=== PATIENT | female | born 1950 | race Caucasian/White ===

== ENCOUNTER 2017-09-05 16:05 | Emergency (ER) | payer MEDICARE, SELFPAY ==
[2017-09-05 16:06] VITALS: BP 150/90; PULSE 109; RESP 18; TEMP 36.4; O2SAT 98; BMI 25.9
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
[2017-09-05 18:33] VITALS: BP 161/89
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
[2017-09-05 20:48] VITALS: BP 156/89
== END 2017-09-05 20:49 | disposition home or self-care (01) ==
PROVIDERS: Emergency Provider Emergency Medicine
DX: S42.251A Displaced fracture of greater tuberosity of right humerus, initial encounter for closed fracture (principal); S09.90XA Unspecified injury of head, initial encounter; V03.90XA Pedestrian on foot injured in collision with car, pick-up truck or van, unspecified whether traffic or nontraffic accident, initial encounter; Y93.9 Activity, unspecified; Y92.9 Unspecified place or not applicable
CPT/HCPCS: 70450; 73060; 73200; 99282

== ENCOUNTER → 2017-09-28 08:56 | Outpatient (CLI) | payer MEDICARE, SELFPAY ==
--- NOTE | 2017-09-28 08:57 | RAD_ITS ---
STUDY: X-RAY - RIGHT HUMERUS REASON FOR EXAM: Fracture follow-up. TECHNIQUE: 2 view(s) of the humerus. COMPARISON: Radiographs 09/05/2017. FINDINGS: There is a nondisplaced fracture of the greater tuberosity with mild resorption at the fracture site. There is no demonstrated soft tissue abnormality. RAD/Humerus min 2 Views IMPRESSION: Nondisplaced fracture of the greater tuberosity. Electronically Signed: Luis Miguel Jacinto MD at 10:34 EDT Tel , Service support ,
== END ==
PROVIDERS: Visit Provider Orthopaedic Surgery
DX: S42.309A Unspecified fracture of shaft of humerus, unspecified arm, initial encounter for closed fracture (principal); S42.253A Displaced fracture of greater tuberosity of unspecified humerus, initial encounter for closed fracture
CPT/HCPCS: 73060

== ENCOUNTER → 2017-10-19 09:47 | Outpatient (CLI) | payer MEDICARE, SELFPAY ==
--- NOTE | 2017-10-19 09:49 | RAD_ITS ---
STUDY: X-RAY - RIGHT SHOULDER REASON FOR EXAM: Female, 67 years old. Follow-up of fracture. TECHNIQUE: to September 28, 2017 view(s) of the shoulder. COMPARISON: None. FINDINGS: There is stable generalized osteopenia. There is a stable arthrosis of the glenohumeral joint. There is arthrosis of the acromioclavicular joint unchanged. Normal acromion. The greater tuberosity avulsion fracture of the right proximal humerus is stable with no complications. The soft tissue structures are unremarkable. Normal visualized pulmonary apex. RAD/Shoulder min 2 Views IMPRESSION: Stable osteopenia and osteoarthritic changes. Stable greater tuberosity avulsion fracture of the right proximal humerus with no complications. Electronically Signed: Paulino Smith MD at 17:16 EDT , Service support ,
== END ==
PROVIDERS: Visit Provider Orthopaedic Surgery
DX: S42.291A Other displaced fracture of upper end of right humerus, initial encounter for closed fracture (principal)
CPT/HCPCS: 73030

== ENCOUNTER → 2017-12-25 10:15 | Outpatient (CLI) | payer MEDICARE, SELFPAY ==
--- NOTE | 2017-12-25 10:27 | RAD_ITS ---
STUDY: X-RAY - RIGHT SHOULDER REASON FOR EXAM: Fracture follow-up. TECHNIQUE: 3 view(s) of the shoulder. COMPARISON: Radiographs 10/19/2017. FINDINGS: There is osteopenia. Normal glenohumeral articulation. Normal acromioclavicular joint. Normal acromion. There is a healing nondisplaced fracture of the greater tuberosity. The soft tissue structures are unremarkable. Normal visualized pulmonary apex. RAD/Shoulder min 2 Views IMPRESSION: Healing nondisplaced fracture of the greater tuberosity. Osteopenia. Electronically Signed: Luis Miguel Jacinto MD at 10:32 EDT Tel , Service support ,
== END ==
PROVIDERS: Visit Provider Orthopaedic Surgery
DX: S42.201A Unspecified fracture of upper end of right humerus, initial encounter for closed fracture (principal)
CPT/HCPCS: 73030

== ENCOUNTER 2017-12-28 12:00 | Outpatient (RCR) | payer MEDICARE, SELFPAY ==
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
--- NOTE | 2017-11-14 13:09 | HP.PTREVAL_ITS ---
Chelsey Lim, DO, It has been my pleasure to treat ROYER RODRIGUEZ over the last 11 visits for R greater tub Fx. Please see the progress note below for an update on the physical therapy plan of care! Subjective: Her shoulder is achy today because of the weather. She is having trouble raising arm overhead... due to soreness. She is sleeping ont her R shoulder for awhile and she is sleeping ok. said she still cant drive. She sees Dr Styles in Dec 25.. She is pushing a rag up the wall at home, she uses the yardstick in supine at home. Objective/Function: R shld flex AROM is 105 degrees. R shld abd AROM is 100 degrees. R shld IR is to L5. R shld ER is 60 degrees. R shld MMT: Shld flex 3-/5, shld abd 3-/5, Er 3+/5 and IR 4/5 Plan Plan: 2X/ week for 3 additional weeks for R shoulder AROM, scapular and RC strengthening with HEP. Goals Goal 1:: I HEP Goal Time Frame: 4-6 Weeks Goal Progress: Goal Met Goal 2:: Increase R shoulder PROM to 160 degrees elevation and 45 degress ER PROM. Goal Time Frame: 4-6 Weeks Goal 3:: When able to start strengthening: Gain R shld strength to 4/5 all planes. Goal Time Frame: 4-6 Weeks Goal 4:: Re-gain full function of the R shoulder for all ADL's. Anticipated Interventions Patient/Client Instruction: Educate patient on: Condition, Plan of Care For the Purpose of:: To decrease pain, To increase ROM, To improve nutrient delivery to tissue, To improve muscle performance and motor function, To improve ability to perform ADL's, To increase tolerance to activity/condition/ position, To improve performance and independence with ADL's, To improve health of tissue, To decrease soft tissue restriction, To increase flexibility/ROM Therapeutic Exercise to Include: Strength training, Postural training, Flexibilty training, Passive ROM, Active ROM, Scapular Strength/Stabilization For the Purpose of:: To decrease pain, To increase ROM, To improve nutrient delivery to tissue, To improve muscle performance and motor function, To improve ability to perform ADL's, To increase tolerance to activity/condition/ position, To improve performance and independence with ADL's, To improve health of tissue, To decrease soft tissue restriction, To increase flexibility/ROM Manual Therapy Techniques to Include: Passive ROM For the Purpose of:: To improve nutrient delivery to tissue, To increase flexibility/ROM IF ES: Yes Cryotherapy (ice pack, ice massage): Yes Thermo therapy (hot pack): Yes Ultrasound (thermal/non thermal): Yes For the Purpose of:: To decrease pain, To decrease swelling/inflammation, To increase ROM, To improve nutrient delivery to tissue Please do not hesitate to contact me at [phone] by phone or Fax: if you have questions or concerns regarding this new plan of care! Sincerely, Cynthia Kim
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
== END 2017-12-28 14:28 | disposition home or self-care (01) ==
LOC: PT 12:00
PROVIDERS: Visit Provider Orthopaedic Surgery
DX: Z98.890 Other specified postprocedural states (principal)
CPT/HCPCS: 97110; 97140; 97161; 97530

== ENCOUNTER 2021-09-13 17:45 | Emergency (ER) | payer MEDICARE, SELFPAY ==
[2021-09-13 17:46] VITALS: BP 189/78; PULSE 142; RESP 18; TEMP 36.2; O2SAT 93; BMI 24.9
[2021-09-13 17:59] VITALS: BP 189/78; PULSE 142; RESP 18; TEMP 36.2; O2SAT 93
--- NOTE | 2021-09-13 18:19 | CM.ED ---
JASS Note: JASS Note Referral Source: Case Find Referral Reason: No PCP SW noted patient had no PCP. SW provided patient with [facility] Directory and encouraged them to follow up for a PCP. No other issues or questions voiced. SW remains available if needs arise. Plan: Resources provided Arianne CM
--- NOTE | 2021-09-13 18:20 | EDS_ITS ---
HPI History of Present Illness Chief Complaint: Bite Detail of Chief Complaint: Right hand cat bite 2 days ago. Informant: patient Occured/Mechanism Comment: Cat bite Onset/Context/Timing Onset: Days Context: Gradual Onset Timing: Continuous Quality of Pain: Dull and Aching Current Severity: Mild Maximum Severity: Mild Associated Symptoms Associated Symptoms: Negative for Parasthesia, Weakness and Loss of Funtion Narrative Narrative: 31-year-old female [id number] no seen past medical history but admittedly does not see a physician. States that she was feeding a stray cat yesterday another cat came up and got in a fight and the cats were fighting one of them bit the back of her right hand. This occurred on Sunday. She has now developed redness and swelling to the back of her hand. Denies any fever or chills. I believe was seen in urgent care and referred to the emergency department. She denies any other complaints. Prior similar symptoms: No Recent Illness/Hospitalization: No ROS ROS ED ROS Narrative Denies recent illness. Review of Systems ROS Unobtainable: Denies due to encephalopathy Constitutional Constitutional ED: Denies fever(s) Eyes Eyes: Denies change in vision ENT ENT ED: Denies ear pain Cardiovascular Cardiovascular: Denies chest pain Respiratory/Chest Respiratory/Chest: Denies dyspnea Gastrointestinal Gastrointestinal: Denies abdominal pain, diarrhea, nausea or vomiting Genitourinary Genitourinary ED: Denies dysuria Musculoskeletal Musculoskeletal: Denies myalgias Integumentary Reports rash Neurologic Neurologic: Denies headache(s) Psychiatric Psychiatric: Denies depression Endocrine Endocrinology: Denies polyuria Hematologic/Lymphatic Hematologic/Lymphatic: Denies easy bruising Allergic/Immunologic Allergic/Immunologic ED: Denies urticaria PFSH PFSH Medical History no medical history no medical history Home Medications aspirin 325 mg PO Q4H PRN PRN 10/13/15 [History Last Taken Unknown] multivitamin 1 ea PO DAILY 10/13/15 [History Last Taken Unknown] amoxicillin-pot clavulanate 1 tab PO BID 10 Days #20 tab 09/13/21 [Rx Last Taken Unknown] Allergy/AdvReac Type Severity Reaction Status Date / Time egg Allergy Swelling Verified 09/13/21 17:46 Penicillins Allergy Unknown Verified 09/13/21 17:46 Social History Smoking Status: Never smoker EXAM Physical Exam Narrative Exam Narrative: Sore throat female no acute distress vital signs stable afebrile. Dorsum of right hand is mildly red mildly swollen. She has normal flexion-extension of all digits. No Knievel sign. No signs of flexor tenosynovitis. There is no streaks in her forearm and no axillary lymp hadenopathy. This appears to be early cellulitis from a cat bite. Const Vital Signs: 09/13/21 17:46 09/13/21 17:59 Temperature 97.2 F L 97.2 F L Temperature Source Temporal Temporal Pulse Rate 142 H 142 H Respiratory Rate 18 18 Blood Pressure 189/78 H 189/78 H Blood Pressure Mean 115 115 Pulse Ox 93 93 Oxygen Delivery Method Room Air Room Air Positive well nourished and well developed; Negative for obese, cachectic, contractures or unkempt General Appearance ED: well developed and NAD; Negative for unkempt, cachectic or contractures Nutritional Appearance: Negative for cachectic or obese HEENT Reports moist mucous membranes normocephalic and atraumatic; Negative for trauma or tenderness Eyes PERRL and EOMs intact bilaterally Neck full ROM and no lymphadenopathy General: Negative for tenderness Resp normal respiratory effort and clear to auscultation bilaterally Auscultation: Negative for rales, rhonchi or wheezes Cardio regular rate, regular rhythm, S1 normal heart sound, S2 normal heart sound and no murmurs GI non-tender, non-distended and no masses Inspection: Negative for abdominal distention Auscultation: normoactive bowel sounds Palpation: soft; Negative for tender, guarding or rebound tenderness present Bladder / Kidney Exam: No CVA tenderness Back/Spine no CVA tenderness General Back: Negative for CVA tenderness Cervical Spine: Negative for cervical spine tenderness Thoracic Spine / Upper Back: Negative for thoracic spinal tenderness Lumbar Spine / Lower Back: Negative for lumbar spinal tenderness Extremity normal to inspection and full ROM Extremity Narrative: Except dorsum right hand cellulitis mild soft tissue swelling. Mild tenderness. Normal flexion-extension. No lymphangitic streaks. No axillary lymphadenopathy. No signs of flexor tenosynovitis. Nor any signs of extensor tenosynovitis. General Extremety ED: Negative for deformity, edema or tenderness General Extremity: Negative for deformity or edema Neuro oriented x3 Sensorium / Orientation: alert, oriented to person, oriented to place and oriented to time Motor Exam: strength 5/5 throughout Psych mental status grossly normal Appearance: Negative for unkempt Skin Lesions: no lesions Rashes: No no rashes Trauma: Negative for abrasion or laceration MDM MDM MDM Narrative Medical decision making narrative: 71-year-old female with a cat bite infection dorsum of her right hand. There is no signs of infection of either the flexor or extensor tendons. She has normal range of motion of her hand. There is no lymphangitic streaking or axillary lymphadenopathy. She will be given a dose of IV Unasyn. Placed on Augmentin 875 twice daily and follow-up for repeat evaluation. She was given strict instructions to return if fever, feeling worse, increasing redness and swelling, increasing pain or lymphangitic streaks. Discharge Plan Triage Chief Complaint: Bite ED Provider: Roger Del Cid Dx/Rx/DC Orders Clinical Impression: Cat bite of right hand with infection, Cellulitis Instructions: ED Cat Bite Prescriptions: New amoxicillin-pot clavulanate 875-125 mg tablet 1 tab PO BID 10 Days Qty: 20 RF: 0 No Action multivitamin 1 EACH tablet 1 ea PO DAILY RF: 0 aspirin 325 MG tablet 325 mg PO Q4H PRN PRN (Reason: Headache) RF: 0 Primary Care Provider: Care Physician,No Primary Referrals: Arsalan Watt MD [STAFF PHYSICIAN] - 2 Days Care Physician,No Primary [Primary Care Provider] - Activity Restrictions/Additional Instructions: You have a cat bite infection of your right hand. Ice and elevate to decrease pain and swelling. This needs to be rechecked in 2 days to ensure its improving. Return to the emergency department if increasing pain, increasing swelling, increasing redness up in your forearm. You are feeling worse. If you get se mikey pain and have trouble flexing extending your hand it needs to be reevaluated. You need to be very careful with cat bites they can get infected and get bad quickly. You were given a dose of IV Unasyn. Be placed on the antibiotic Augmentin that you will start taking twice a day and take 1 tonight before bedtime. Then take it in the morning with breakfast in the evening with dinner for the next 10 days. Disposition Disposition: Home, Self Care
== END 2021-09-13 19:20 | disposition home or self-care (01) ==
PROVIDERS: Emergency Provider Emergency Medicine; Visit Provider Emergency Medicine
DX: S60.571A Other superficial bite of hand of right hand, initial encounter (principal); L03.113 Cellulitis of right upper limb; W55.01XA Bitten by cat, initial encounter; Y93.89 Activity, other specified; Y99.8 Other external cause status
CPT/HCPCS: 96365; 99282; J7050; A4216; J0295

== ENCOUNTER 2024-01-12 15:48 | Emergency (ER) | payer MEDICARE, SELFPAY ==
[2024-01-12 15:49] VITALS: BP 154/94; PULSE 146; RESP 18; TEMP 36.5; O2SAT 94; BMI 25.7
--- NOTE | 2024-01-12 16:10 | EKG12_ITS ---
Test Reason : TACHYCARDIC Blood Pressure : / mmHG Vent. Rate : 133 BPM Atrial Rate : 133 BPM P-R Int : 132 ms QRS Dur : 080 ms QT Int : 296 ms P-R-T Axes : 063 -55 056 degrees QTc Int : 440 ms Sinus tachycardia Left anterior fascicular block Cannot rule out Inferior infarct (masked by fascicular block?) , age undetermined Abnormal ECG Confirmed by MONALISA VIZCAINO MD ([id number]), international editorial producer ISRA LEWIS ([id number]) on 01/15/2024 10:24:34 AM Referred By: Confirmed By:MONALISA VIZCAINO MD
--- NOTE | 2024-01-12 16:25 | EDS_ITS ---
HPI History of Present Illness Chief Complaint: Weakness Detail of Chief Complaint: Patient felt weak in her knees as if she was going to fall Informant: patient and family Limited: other (Patient is a poor informant) Onset/Context/Timing Onset: Today Context: Sudden Onset Timing: Intermittent Quality: [place] near syncope Location: Residence Current Severity: Gone Maximum Severity: Moderate Worsened by: Patient was standing Relieved by: Sitting down Associated Symptoms Associated Symptoms: None Narrative Narrative: Patient is a 73-year-old woman. She has not seen a physician in decades. She was unaware that her heart rate was 146. She denies fever, chills night sweats. She denies headache, visual, ocular auditory symptoms. She does have rhinorrhea which she attributes to allergies. She denies color drainage. She denies sore throat. She does have a slight cough, which is chronic. The cough is nonproductive. She denies chest discomfort i.e. tightness heaviness pressure pleuritic etc. She denies shortness of breath at rest. She has had increased shortness of breath per family over the past couple of days. She denies leg pain, swelling discoloration. There is no history of PE or DVT. She has no risk factors that she is aware of. She denies abdominal pain, black stool maroon stool. She denies nausea or vomiting. She denies flank or back pain. Denies dysuria, frequency, urgency or hematuria. She denies paresthesia, anesthesia motors. Denies trouble with balance or coordination. Prior similar symptoms: No Recent Illness/Hospitalization: No PFSH PFSH Medical History no medical history no medical history Home Medications ?Medication ?Instructions ?Recorded ?Last Taken ?Type aspirin 325 mg tablet 325 mg PO Q4H PRN PRN Headache 10/13/15 Unknown History multivitamin 1 ea PO DAILY 10/13/15 Unknown History amoxicillin 875 mg-potassium 1 tab PO BID 10 days #20 tabs 09/13/21 Unknown Rx clavulanate 125 mg tablet levothyroxine 75 mcg tablet 75 mcg PO DAILY #30 tabs 01/12/24 Unknown Rx metoprolol succinate 25 mg 25 mg PO DAILY #30 tabs 01/12/24 Unknown Rx tablet,extended release 24 hr Allergy/AdvReac Type Severity Reaction Status Date / Time egg Allergy Swelling Verified 01/12/24 15:49 Penicillins Allergy Unknown Verified 01/12/24 15:49 Surgical History no surgical history no surgical history Social History (Updated 01/12/24 @ 16:[address] Kevin Darnell MD) household members: family Smoking Status: Never smoker alcohol intake: never substance use type: does not use ROS ROS ED Constitutional Constitutional ED: Denies chills, fever(s), subjective or sweats Eyes Eyes: Denies blurry vision, change in vision or diplopia ENT ENT ED: Reports rhinorrhea; Denies ear pain or sore throat Cardiovascular Cardiovascular: Denies chest pain, orthopnea, palpitations, paroxysmal nocturnal dyspnea or racing heartbeat Respiratory/Chest Respiratory/Chest: Reports dyspnea on exertion; Denies cough, dyspnea, orthopnea, paroxysmal nocturnal dyspnea or sputum Gastrointestinal Gastrointestinal: Denies abdominal pain, constipation, diarrhea, melena, nausea or vomiting Genitourinary Genitourinary ED: Denies dysuria, hematuria or urinary frequency Musculoskeletal Musculoskeletal: Denies arthralgias, back pain or myalgias Integumentary Denies rash Neurologic Neurologic: Reports weakness; Denies headache(s) or paresthesias Endocrine Endocrinology: Reports heat intolerance; Denies cold intolerance Hematologic/Lymphatic Hematologic/Lymphatic: Reports systems reviewed and no addt'l complaints, except as documented Allergic/Immunologic Allergic/Immunologic ED: Denies mouth swelling or tongue swelling EXAM Physical Exam Const Vital Signs: 01/12/24 15:49 01/12/24 16:29 01/12/24 17:40 Temperature 97.7 F L Temperature Source Oral Pulse Rate 146 H 118 H Respiratory Rate 18 16 Respiratory Effort Normal Respiratory Pattern Normal Blood Pressure 154/94 H 132/78 H Blood Pressure Mean 114 96 Pulse Ox 94 97 Oxygen Delivery Method Room Air Room Air 01/12/24 18:57 Temperature Temperature Source Pulse Rate 117 H Respiratory Rate 15 Respiratory Effort Respiratory Pattern Blood Pressure 146/94 H Blood Pressure Mean 111 Pulse Ox 94 Oxygen Delivery Method Room Air Positive well nourished and well developed Constitutional Narrative: Patient's blood pressure is elevated heart rate is markedly elevated. General Appearance ED: well developed, NAD and pallor HEENT Reports moist mucous membranes HEENT Narrative: Poor dentition. Posterior pharynx is normal. Ears normal. Nares patent. There is no tenderness over the frontal ethmoid or maxillary sinuses. Eyes PERRL and EOMs intact bilaterally General Eye ED: Negative for pale conjunctiva or scleral icterus Neck no lymphadenopathy, supple and no JVD Neck Narrative: Trachea is midline. There is no stridor. There is no dysphonia. Resp normal respiratory effort and clear to auscultation bilaterally Cardio regular rhythm, S1 normal heart sound, S2 normal heart sound and no murmurs Rate: tachycardic GI normal to inspection, nondistended, normoactive bowel sounds, non-tender, non- distended and no masses; Negative for hepatosplenomegaly GI Narrative: There is no pulsatile mass or abdominal bruit. Back/Spine no CVA tenderness Extremity Extremity Narrative: There is no asymmetry, discoloration, leg vein distention, palpable cords tenderness on the distribution deep venous system. General Extremety ED: Yes edema General Extremity: edema Neuro oriented x3, CN's II-XII intact bilaterally and no sensory deficits noted Sensorium / Orientation: alert Motor Exam: strength 5/5 throughout Psych mental status grossly normal Skin no rashes or lesions noted, no wounds and No skin turgor normal General Skin Exam: pallor; Negative for elasticity normal or jaundice MDM MDM MDM Narrative Medical decision making narrative: With a rate of 146 need entertain possibility of atrial fibrillation/flutter. Also sinus tachycardia. Since she reports heat intolerance question of mild weight loss will obtain TSH to rule out thyroid disease. CBC to rule out anemia since she appears pale. BMP to assess renal function since she has not seen a doctor in decades. She was placed on the monitor. Monitor reveals a narrow complex tachycardia appears to be sinus. Rate is 136. Lab Data Attestation: I reviewed the patient's lab results. Lab results narrative: White count is elevated. MCV and MCH are elevated as well. This may be due to pernicious anemia or folate deficiency since patient denies alcohol use. D- dimer is elevated even if corrected for age. BUN and creatinine are elevated 21 and 1.38. Estimated GFR is 40. There is no old labs for comparison. Total bilirubin is elevated with a normal AST and ALT. Alkaline phosphatase is slightly elevated. TSH is elevated at 10.4. This was obtained to rule out hyperthyroidism not hypothyroidism since she is tachycardic for uncertain reason. Labs: Laboratory Results - last 24 hr 01/12/24 15:55 WBC 14.0 H RBC 3.66 L Hgb 13.7 Hct 40.0 MCV 109.3 H MCH 37.4 H MCHC 34.3 RDW Std Deviation 49.4 H RDW Coeff of Jessica 12.3 Plt Count 289 MPV 9.8 Immature Gran % (Auto) 0.700 Neut % (Auto) 84.0 H Lymph % (Auto) 7.7 L [place] % (Auto) 6.9 Eos % (Auto) 0.1 Baso % (Auto) 0.6 Absolute Neuts (auto) 11.8 H Absolute Lymphs (auto) 1.08 Nucleated RBC % 0 D-Dimer Quant (PE/DVT) 5.26 H* Sodium 138 Potassium 3.8 Chloride 103 Carbon Dioxide 26.0 Anion Gap 9 BUN 21 H Creatinine 1.38 H Estim Creat Clear Calc 36.81 Est GFR (MDRD) Af Amer 48 L Est GFR (MDRD) Non-Af 40 L BUN/Creatinine Ratio 15.2 Glucose 152 H Calcium 9.5 Total Bilirubin 2.30 H AST 20 ALT 17 Alkaline Phosphatase 131 H Troponin I High Sens 9 Total Protein 7.8 Albumin 3.6 Globulin 4.2 Albumin/Globulin Ratio 0.9 TSH 10.400 H Radiography Diagnostic Testing: Clinical Impression(s) from Imaging Studies Chest CTA 01/12/24 17:30 IMPRESSION: 1. No demonstrated pulmonary embolism or arterial dissection. 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 3. No visualized consolidation Electronically Signed: Price Bassett MD at 19:27 EDT Reading Location ID and State: [address] [place] [address] , Service support , CT of the chest reveals no obvious pulmonary embolus per my review. Furthermore there is no evidence of pneumothorax or infiltrate. CT report was read. Since patient has not been a physician she was referred to Dr. English and Dr. Costa for endocrinology/hypothyroidism Rhythm Strip Rhythm Strip: Sinus Tach Rate: 136 EKG Initial EKG: Attestation: I personally reviewed and interpreted this EKG as follows: Interpretation: Sinus Tachycardia (Rate is 133. There is evidence of a left anterior fascicular block. [place] to the left. Parables 132 ms. Cures duration 80 ms. QT duration 296 ms. In my opinion this is not read as represent atrial flutter.) Treatment and Re-Evaluation :: Patient was informed because of her tachycardia near syncope elevated D-dimer a CAT scan of the chest with contrast was ordered to assess for blood clot. Discharge Plan Triage Chief Complaint: Weakness ED Provider: Kevin Darnell Dx/Rx/DC Orders Clinical Impression: Sinus tachycardia seen on phone representative, Hypothyroidism, Elevated blood- pressure reading without diagnosis of hypertension, Near syncope Instructions: ED About Arrhythmias, ED Hypertension, To Be Confirmed, ED Hypothyroidism, ED Near-Fainting, Uncertain Cause Prescriptions: New levothyroxine 75 mcg tablet 75 mcg PO DAILY Qty: 30 0RF metoprolol succinate 25 mg tablet extended release 24 hr 25 mg PO DAILY Qty: 30 0RF No Action multivitamin 1 EACH tablet 1 ea PO DAILY aspirin 325 MG tablet 325 mg PO Q4H PRN PRN (Reason: Headache) amoxicillin-pot clavulanate 875-125 mg tablet 1 tab PO BID 10 Days Qty: 20 0RF Primary Care Provider: Care Physician,No Primary Referrals: Jf Nam MD [Med Staff - Active Staff] - 1-2 Weeks Rashad Costa MD [Med Staff - Courtesy Staff] - 1-2 Weeks Dago English MD [Med Staff - Welding Rod Coater] - 1-2 Weeks Care Physician,No Primary [Primary Care Provider] - Activity Restrictions/Additional Instructions: Since you do not have a general doctor you were referred to Dr. Dago English. Call for appointment to be seen in next 1 to 2 weeks. Since you do not have an bricklayer helper who referred to Dr. Rashad Costa. Call for appointment to be seen in the next week or 2. Since you have persistent tachycardia you were referred to Dr. Nam. Call office for appointment to be seen within the next week or 2 You were started on medicine to slow your heart rate down and medicine for your low thyroid function. Print Language: Malay Disposition Disposition: Home, Self Care
[2024-01-12 16:36] LABS: Absolute Lymphocyte Count 1.08 X10^3/uL (0.83-4.51); Absolute Neutrophil Count 11.8 X10^3/uL (2.0-7.7); Basophil# 0.08 X10^3/uL; Basophil% 0.6 % (0-1); Eosinophil# 0.02 X10^3/uL; Eosinophils% 0.1 % (0-5); Hemoglobin 13.7 g/dL (12.0-15.0); Lymphocyte # 1.08 X10^3/ul (0.83-4.51); Lymphocyte % 7.7 % (19-41); Mean Corp Hgb Conc 34.3 g/dL (32-36); Mean Corpuscular Hgb 37.4 pg (27.0-32.0); Mean Corpuscular Volume 109.3 fL (81-99); Mean Platelet Vol. 9.8 fl (6.2-12.0); Monocyte# 0.96 X10^3/uL; Monocyte% 6.9 % (0-10); NRBC Flagged by Analyzer 0 % (0-5); Neutrophil # 11.77 X10^3/uL (2.7-7.7); Platelet Count 289 K/mm3 (150-450); RBC Distribution Width CV 12.3 % (11.6-14.6); RBC Distribution Width SD 49.4 fl (35.1-43.9); Red Blood Count 3.66 M/mm3 (4.2-5.4)
[2024-01-12 16:43] LABS: ALB/GLOB Ratio 0.9 RATIO (0.9-2.4); AST(SGOT) 20 U/L (15-37); Alanine Aminotransfer ALT/SGPT 17 U/L (13-56); Albumin, Serum 3.6 g/dL (3.2-5.0); Alkaline Phosphatase 131 U/L (45-117); Anion Gap 9 (5-15); BUN 21 mg/dL (7-18); BUN/Creat Ratio 15.2 RATIO (10-20); Calcium,Total 9.5 mg/dL (8.5-10.1); Chloride 103 mmol/L (98-107); Creatinine, Serum 1.38 mg/dL (0.55-1.02); EST Glomerular Filtration Rate 40 mL/min (>60); Est Glom Filt Rate - Afr Amer 48 mL/min (>60); Estimated Creatinine Clearance 36.81 ml/min; Globulin 4.2 g/dL (2.2-4.2); Glucose 152 mg/dL (74-106); Potassium 3.8 mmol/L (3.5-5.1); Protein, Total 7.8 g/dL (6.4-8.2); Sodium Level 138 mmol/L (136-145); Troponin-I HS 9 pg/mL (3.0-54.0)
--- NOTE | 2024-01-12 17:15 | CM.ED ---
Social Work: Date of referral: 01/12/24 Reason for referral: Weakness and not established with a PCP. Referred by: Social Work Identification Patient provided consent to social work visit. In the room with patient were patient's cousins Gladys and Latrice. Patient currently resides with Gladys and Gladys's daughter Kandy. Patient not able to provide a solid reason as to why she's not established with a PCP. Scientist/Engineer asked patient's cousins if either would be able to assist patient with getting established with a PCP and both stated they would be able to assist. Gladys admittted she doesn't have a PCP wither and she and patient have been doing good and didn't think a PCP was needed. transportation worker provided preventative education and also provided education how to search for providers which patient's cousins reported they knew and understood. Latrice is established with a PCP and reported she is also able to help. Patient reported this is the first time she's been so weak that she hasn't been able to walk. Patient still drives. Patient does have a walker at home to ambulate with if/when needed. Patient appeared to be unkept, poor hygiene, disheveled and presented with poor oral hygiene/numerous missing teeth and at least one tooth that appeared to be decayed and broken off. It is likely that patient will be in need of follow up appointments following the ED visit on this date. Due to patient not having been to the doctor in years, as well as overall presentation, director of social work will request that aids social worker make a referral to [facility]PS to ensure patient is not self-neglecting and has the supports in place that will ensure patient's current and future medical needs are being met. Fern Watkins, NEAR EASTERN ARCHAEOLOGY LECTURER, FINANCIAL AGENT
[2024-01-12 17:30] LABS: D-Dimer Quantitative (DVT/PE) 5.26 FEU/ug/m (0.27-0.49)
--- NOTE | 2024-01-12 17:30 | CT_ITS ---
STUDY: CTA CHEST REASON FOR EXAM: Female, 73 years old. Dyspnea, tachycardia, elevated D-dimer RADIATION DOSAGE (If Supplied By Facility): CTDIvol = ( 12.9 ) mGy, DLP = ( 361.18 ) mGycm TECHNIQUE: The examination was performed with the intravenous administration of IV 100mL Isovue-370. Post-processing of the angiographic images was performed, with multiplanar reformation and 3D reconstruction. Individualized dose optimization techniques were used for this CT. Mild motion artifact is present. COMPARISON: None. FINDINGS: Normal enhancement of the main pulmonary artery and right and left pulmonary arteries. Normal enhancement of the bilateral peripheral pulmonary arteries. There is no demonstrated pulmonary embolism. There is atherosclerotic calcification of the aortic arch with tortuosity. There is no demonstrated aortic dissection. Normal heart and pericardium. There are calcifications of the coronary arteries. Normal mediastinum. Normal hilar regions. Normal visualized trachea and bronchi. The lungs are hyper expanded, with flattening of the hemidiaphragms. There are mildly increased diffuse interstitial parenchymal markings. No visualized pneumonic consolidation or active pulmonary edema. Mild cystic emphysematous changes are present. No pleural effusion is seen. No visualized masses. Normal pleura. Normal chest wall structures. There are degenerative changes of thoracic spine. Small to moderate-sized hiatal hernia noted. The remaining visualized upper abdominal structures are unremarkable. CT/CTA Chest W/WO Contrast IMPRESSION: 1. No demonstrated pulmonary embolism or arterial dissection. 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 3. No visualized consolidation Electronically Signed: Price Bassett MD at 19:27 EDT Reading Location ID and State: [facility] / [place] , Service support ,
[2024-01-12 17:40] VITALS: BP 132/78; PULSE 118; RESP 16; O2SAT 97
[2024-01-12 18:57] VITALS: BP 146/94; PULSE 117; RESP 15; O2SAT 94
[2024-01-12 19:30] VITALS: BP 146/72; BP 148/72; BP 153/72; PULSE 112; PULSE 115; PULSE 120
[2024-01-12 19:46] VITALS: BP 148/80; PULSE 20; RESP 116; TEMP 36.7; O2SAT 97
[2024-01-12] MEDS: Levothyroxine 75 MCG Tablet PO (19:57)
[2024-01-12] MEDS: Metoprolol(XL)Succ 25 MG Tablet PO (19:57)
--- NOTE | 2024-01-14 10:48 | CASEMGMT ---
Addendum entered by Michelle Bob 01/15/24 14:58: TC to the pt at this time (attempt #3) to provide follow-up assistance. No answer at this time. TC to the pt Gladys Zuñiga. No answer at this time. Addendum entered by Michelle Bob 01/14/24 14:20: Attempt #2 to contact the pt at this time. No answer. Unable to leave voice message. Original Note: TC to pt at this time for follow up. No answer at this time. Unable to leave VM d/t voice mailbox not being set up.
--- NOTE | 2024-01-17 09:35 | CASEMGMT ---
Addendum entered and electronically signed by Kandy Ontiveros RN 01/17/24 12:15: Tawnya phoned this RN and states she is feeling better. States she has been taking her medication and is aware her cousin is helping to set up her follow-up appointments. Pt denies any concerns except did state that she is getting a stuffy nose. Pt commented you know fall is coming. 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 Her cousin Gladys has been living with her for approximately 3 years. Pt denies any concerns with being able to care for herself and states she can still do so independently. Encouraged pt to establish a PCP and to continue to visit a physician regularly to maintain her health. Pt expressed understanding but not necessarily an intent to do so. Pt denies needing any assistance at this time. Has the support of her cousin for follow-up appointments and medication management. No skilled needs identified currently. Lila Ontiveros RN [facility] Original Note: substance abuse services director Follow-up: Call received from pt's cousin Gladys Mckinley who states she noted the missed calls on her phone from the hospital and was attempting to return them. States she had someone stop by and knock on the door yesterday but she was unable to get to the door in time. Gladys wondered if we would have sent someone to check on Tawnya. Explained to Gladys that we had attempted to reach out to her and Tawnya in follow-up to the ED visit and that we had reached out to [facility] to have someone check on them and offer any assistance with Tawnya's care. Gladys states that Tawnya has been improving since returning home from the ED, is ambulating without difficulty and hopping in her car and driving away whenever desired. Gladys states pt is able to perform her ADLs including bathing but that Gladys has to encourage pt to do so as Tawnya does not have a strong desire to bath independently. Gladys states pt received her medications and has been taking them as prescribed. Gladys states she plans to make pt's appointments today as she has been working and not been able to call when the offices are open. She plans to attend the appointments with Tawnya although Tawnya is able to drive herself. Gladys states she works at [employer] with hours that change frequently. Per Gladys, Tawnya was never and did not have any children. There are many other cousins and family members but Gladys assists Tawnya regularly as able. Gladys denies any concerns at this time. States she will have Tawnya call me back later today. States Tawnya is currently sleeping as she often stays up late at night and sleeps until late morning/noon. This RN CM provided Gladys a direct call back number. Plan: Gladys supportive of pt and her care needs but as care needs escalate, this may be challenging with Gladys's work schedule. Lila Ontiveros RN [facility]
== END 2024-01-12 19:58 | disposition home or self-care (01) ==
PROVIDERS: Emergency Provider Emergency Medicine; Visit Provider Emergency Medicine
DX: R55 Syncope and collapse (principal); R53.1 Weakness; R00.0 Tachycardia, unspecified; E03.9 Hypothyroidism, unspecified; R03.0 Elevated blood-pressure reading, without diagnosis of hypertension; R06.09 Other forms of dyspnea; R05.3 Chronic cough
CPT/HCPCS: 71275; 80053; 84443; 84484; 85025; 85379; 93005; 99285; Q9967; A4216

== ENCOUNTER → 2024-02-14 | Outpatient (CLI) | payer MEDICARE, SELFPAY | END | disposition home or self-care (01) | LOC: CVS 12:55 | PROVIDERS: PCP Internal Medicine; Referring Provider Internal Medicine Cardiovascular Disease; Visit Provider Internal Medicine Cardiovascular Disease | DX: R06.09 Other forms of dyspnea (principal) | CPT/HCPCS: 93306 ==

== ENCOUNTER → 2024-02-20 | Outpatient (CLI) | payer MEDICARE, SELFPAY ==
[2024-02-20 15:36] LABS: Vitamin B12 175 pg/mL (211-911)
[2024-02-20 15:48] LABS: Cholesterol 195 mg/dL (200); High Density Lipoprotein 50 mg/dL; T4 Free Direct 1.63 ng/dL (0.76-1.46); Triglycerides 155 mg/dL; Very Low Density Lipoprotein 31 mg/dL (5-40)
[2024-02-20 15:52] LABS: Hemoglobin A1c 5.3 % (3.8-5.6)
[2024-02-20 16:01] LABS: Anion Gap 7 (5-15); BUN 20 mg/dL (7-18); BUN/Creat Ratio 22.3 RATIO (10-20); Calcium,Total 9.1 mg/dL (8.5-10.1); Chloride 103 mmol/L (98-107); EST Glomerular Filtration Rate 65 mL/min (>60); Est Glom Filt Rate - Afr Amer 79 mL/min (>60); Glucose 93 mg/dL (74-106); Potassium 4.3 mmol/L (3.5-5.1); Sodium Level 137 mmol/L (136-145)
== END | disposition home or self-care (01) ==
LOC: BIMLAB 11:55
PROVIDERS: PCP Internal Medicine; Referring Provider Internal Medicine Cardiovascular Disease; Visit Provider Internal Medicine Cardiovascular Disease
DX: R00.0 Tachycardia, unspecified (principal); R73.9 Hyperglycemia, unspecified; E03.9 Hypothyroidism, unspecified; D75.89 Other specified diseases of blood and blood-forming organs
CPT/HCPCS: 36415; 80048; 80061; 82607; 82746; 83036; 84439; 84443

== ENCOUNTER → 2024-05-20 | Outpatient (CLI) | payer MEDICARE, SELFPAY ==
[2024-05-20 15:27] LABS: Absolute Lymphocyte Count 2.56 X10^3/uL (0.83-4.51); Absolute Neutrophil Count 4.6 X10^3/uL (2.0-7.7); Basophil# 0.13 X10^3/uL; Basophil% 1.6 % (0-1); Eosinophil# 0.23 X10^3/uL; Eosinophils% 2.8 % (0-5); Hematocrit 47.8 % (37-47); Hemoglobin 15.3 g/dL (12.0-15.0); Lymphocyte # 2.56 X10^3/ul (0.83-4.51); Lymphocyte % 31.1 % (19-41); Mean Corpuscular Hgb 29.4 pg (27.0-32.0); Mean Corpuscular Volume 91.7 fL (81-99); Mean Platelet Vol. 10.9 fl (6.2-12.0); Monocyte% 8.5 % (0-10); NRBC Flagged by Analyzer 0 % (0-5); Neutrophil % 55.8 % (47-70); Platelet Count 333 K/mm3 (150-450); RBC Distribution Width SD 43.6 fl (35.1-43.9); Red Blood Count 5.21 M/mm3 (4.2-5.4); White Blood Count 8.2 K/mm3 (4.4-11.0)
[2024-05-20 16:18] LABS: Vitamin B12 254 pg/mL (211-911); Vitamin D,25 Hydroxy 15.2 ng/mL
[2024-05-20 16:19] LABS: ALB/GLOB Ratio 0.9 RATIO (0.9-2.4); AST(SGOT) 13 U/L (15-37); Alanine Aminotransfer ALT/SGPT 17 U/L (13-56); Albumin, Serum 3.6 g/dL (3.2-5.0); Alkaline Phosphatase 109 U/L (45-117); Anion Gap 6 (5-15); BUN 24 mg/dL (7-18); BUN/Creat Ratio 25.6 RATIO (10-20); Calcium,Total 9.5 mg/dL (8.5-10.1); Chloride 106 mmol/L (98-107); Creatinine, Serum 0.94 mg/dL (0.55-1.02); EST Glomerular Filtration Rate 62 mL/min (>60); Est Glom Filt Rate - Afr Amer 75 mL/min (>60); Globulin 4.1 g/dL (2.2-4.2); Glucose 87 mg/dL (74-106); Potassium 4.1 mmol/L (3.5-5.1); Protein, Total 7.7 g/dL (6.4-8.2); Sodium Level 140 mmol/L (136-145)
== END | disposition home or self-care (01) ==
LOC: BIMLAB 12:26
PROVIDERS: PCP Internal Medicine; Visit Provider Internal Medicine
DX: I10 Essential (primary) hypertension (principal); E03.9 Hypothyroidism, unspecified; E55.9 Vitamin D deficiency, unspecified; E53.8 Deficiency of other specified B group vitamins
CPT/HCPCS: 36415; 80053; 82306; 82607; 84443; 85025

== ENCOUNTER 2024-06-01 23:12 | Observation (INO) | payer MEDICARE, SELFPAY ==
[2024-06-01 23:14] VITALS: BP 162/99; PULSE 105; RESP 17; TEMP 36.4; O2SAT 99; BMI 25.2
[2024-06-01 23:27] VITALS: BMI 24.6
[2024-06-01 23:30] VITALS: BP 160/103; PULSE 91; RESP 14; O2SAT 97
--- NOTE | 2024-06-01 23:30 | CT_ITS ---
PROCEDURE: CT brain without IV contrast REASON FOR EXAM: Neurologic deficit TECHNIQUE: Multiple contiguous axial images of the brain were obtained without the administration of intravenous contrast. Two-dimensional coronal and sagittal reformatted images were reconstructed. Low-dose imaging technique was utilized. COMPARISON: 09/05/2017 FINDINGS: No evidence of acute intracranial hemorrhage, midline shift or mass effect. No definite CT evidence of acute territorial cortical infarction. No hydrocephalus. Mild generalized cerebral atrophy. Advanced chronic small-vessel ischemic changes. Chronic lacunar insult in the left basal ganglia. Chronic bilateral periventricular white matter insults also noted. Calvarium is intact. Paranasal sinuses and mastoid air cells are relatively clear. Cerebrovascular calcifications. CT/STROKE Brain/Head without Cont IMPRESSION: 1. No acute intracranial abnormality. If there is persistent clinical concern for acute ischemia, MRI is most sensitive. 2. Atrophy and chronic ischemic changes as above. One or more dose reduction techniques were used (e.g., Automated exposure contr ol, adjustment of the mA and/or kV according to patient size, use of iterative reconstruction technique). Reading Location: [facility]
--- NOTE | 2024-06-01 23:30 | EKG12_ITS ---
Test Reason : DYSRHTYHMIA Blood Pressure : */* mmHG Vent. Rate : 92 BPM Atrial Rate : 92 BPM P-R Int : 124 ms QRS Dur : 82 ms QT Int : 372 ms P-R-T Axes : 25 -34 35 degrees QTcB Int : 460 ms Normal sinus rhythm Left axis deviation Moderate voltage criteria for LVH, may be normal variant ( R in aVL , [place] product ) Abnormal ECG Confirmed by Ziggy Wilder ([id number]), art editor ISRA LEWIS ([id number]) on 06/02/2024 10:34:07 AM Referred By: Confirmed By: Ziggy Wilder
--- NOTE | 2024-06-01 23:31 | CT_ITS ---
PROCEDURE: CTA head and neck REASON FOR EXAM: Neurologic deficit TECHNIQUE: Multiple contiguous axial images through the head and neck were obtained after the administration of intravenous contrast. Two-dimensional and three-dimensional MIP coronal and sagittal reformatted images were reconstructed. Low-dose imaging technique was utilized. COMPARISON: None. FINDINGS: Neck. Patent three-vessel arch. No significant subclavian artery stenosis. Right common, internal and external carotid arteries are without significant stenosis. Left common, internal and external carotid arteries are without significant stenosis. Bilateral vertebral and basilar arteries are without significant stenosis. No acute findings in the lung apices. No suspicious neck mass or adenopathy. No acute osseous abnormality. Mild degenerative changes of the cervical spine. Periodontal disease. Head. No large vessel high-grade stenosis, occlusion or aneurysm. Dural venous sinuses are grossly patent. No pathologic enhancement. CT/STROKE CTA Head AND Neck W/Con IMPRESSION: No large vessel high-grade stenosis or occlusion. One or more dose reduction techniques were used (e.g., Automated exposure contr ol, adjustment of the mA and/or kV according to patient size, use of iterative reconstruction technique). Reading Location: [facility]
--- NOTE | 2024-06-01 23:34 | ED.VIS.STROK ---
HPI History of Present Illness Chief Complaint: Neuro S/Sx Informant: patient and family Narrative Narrative: Presents by private vehicle for neuro complaints reporting trouble getting her words out started 2230 1 hour prior to arrival. Family present states patient was talking and was having word salad. On and off for 45 minutes before the side of the bring her here. On arrival symptoms resolved. Patient denies headache denies hemiparesis or paresthesias. No stroke history. History of hypertension and hypothyroidism. Denies any cardiac history. Prior similar symptoms: No PFSH PFSH Medical History CKD (chronic kidney disease), stage II Cognitive decline HTN (hypertension) Hypothyroidism Tachycardia Home Medications ?Medication ?Instructions ?Recorded ?Last Taken ?Type losartan 50 mg tablet 50 mg PO QDAY #30 tabs 01/25/24 Unknown Rx metoprolol succinate 50 mg 50 mg PO DAILY #30 tabs 01/25/24 Unknown Rx tablet,extended release 24 hr levothyroxine 75 mcg tablet 112.5 mcg (1.5 x 75 mcg) PO DAILY 04/21/24 Unknown Rx #45 tabs cyanocobalamin (vitamin B-12) 2,000 mcg (2 x 1,000 mcg) PO QDAY 05/20/24 Unknown Rx 1,000 mcg sublingual tablet #90 tabs aspirin 81 mg chewable tablet 81 mg PO BREAKFAST 30 days #30 tabs 06/02/24 Unknown Rx atorvastatin 40 mg tablet (Lipitor) 40 mg PO QHS 30 days #30 tabs 06/02/24 Unknown Rx Allergy/AdvReac Type Severity Reaction Status Date / Time egg Allergy Swelling Verified 06/01/24 23:14 Penicillins Allergy Unknown Verified 06/01/24 23:14 Family History Other Adopted Surgical History History of tonsillectomy History of surgery on left wrist Social History adopted: Yes household members: family current occupational status: retired 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 Smoking Status: Never smoker alcohol intake: never substance use type: does not use caffeine: Yes (pop one per day) eating out: 1-3 times/week what type of physical activity do you participate in: walking seatbelt use: always do you feel safe at home: Yes ROS ROS ED Constitutional Constitutional ED: Denies chills, fever(s) or sweats ENT ENT ED: Denies sore throat Cardiovascular Cardiovascular: Denies chest pain, leg edema, palpitations or racing heartbeat Respiratory/Chest Respiratory/Chest: Denies cough, dyspnea or dyspnea on exertion Gastrointestinal Gastrointestinal: Denies abdominal pain, diarrhea, nausea or vomiting Genitourinary Genitourinary ED: Denies dysuria, hematuria or urinary frequency Musculoskeletal Musculoskeletal: Denies back pain, extremity pain or neck pain Integumentary Denies rash or wounds Neurologic Neurologic: Reports other Details: word salad ; Denies headache(s), paresthesias or weakness EXAM Physical Exam Const Vital Signs: 06/02/24 00:00 06/02/24 00:12 06/02/24 00:30 Pulse Rate 89 89 88 Respiratory Rate 14 14 18 Blood Pressure 171/87 H 171/87 H 167/108 H Blood Pressure Mean 115 115 127 Pulse Ox 96 96 96 Oxygen Delivery Method Room Air Room Air Room Air Positive well nourished and well developed General Appearance ED: well developed and NAD HEENT Reports moist mucous membranes normocephalic and atraumatic Eyes General Eye ED: Yes normal appearance of both eyes Neck full ROM Chest Wall Chest: Negative for tenderness Resp normal respiratory effort and normal air movement Effort and Inspection: symmetric chest movement; Negative for respiratory distress Cardio regular rate, regular rhythm and no murmurs Peripheral Pulses: pulses 2+ throughout GI normal to inspection, nondistended, normoactive bowel sounds and non-tender Palpation: Negative for guarding or rebound tenderness present Extremity normal to inspection General Extremety ED: Negative for edema or tenderness General Extremity: Negative for edema Neuro oriented x3, CN's II-XII intact bilaterally and no sensory deficits noted Neuro Narrative: NIH of 0. Sensorium / Orientation: awake and alert Skin no rashes or lesions noted and no wounds NIHSS NIHSS Initial: 1a Level of Consciousness: 0 1b LOC Questions (Score 2 if aphasic/stupor): 0 1c LOC Commands (Only score 1st attempt): 0 2 Best Gaze (If aphasic, use reflexive mvmts.): 0 3 Visual: 0 4 Facial Palsy: 0 5 Motor Arm Right (UN = amputation/fusion): 0 5 Motor Arm Left: 0 6 Motor Leg Right: 0 6 Motor Leg Left: 0 7 Limb ataxia (Only + if out of proportion): 0 8 Sensory (Aphasia/stupor=0 or 1, coma=2): 0 9 Best Language: 0 10 Dysarthria (mute, coma=2, intubated=UN): 0 11 Extinction and Inattention (only scored if +): 0 Total Score: 0 MDM MDM MDM Narrative Medical decision making narrative: Interventions / MDM: Differential diagnosis: TIA, expressive aphasia Diagnosis considered but do not suspect: N/A My EKG interpretation: Sinus rhythm rate 92, no ST changes. Imaging independently reviewed and interpreted by myself: 1 view chest x-ray: No acute process. CT brain: No acute process. CT angio head and neck: No acute process. Also read by radiology. External documents reviewed: N/A Test considered but not ordered:N/A ED course: Reports strokelike symptoms with word salad lasting 45 minutes resolved in the ED. NIH of 0. No stroke history. Stroke workup initiated with CT and CT angiogram of the brain. 0045: Results were negative remains symptom-free. Creatinine 1.54. 12 days ago was 0.9. Has been no vomiting diarrhea. Will give fluid bolus in the ED. With expressive aphasia concerns for TIA discussed with hospitalist Dr. Amado for admission. Re-evaluation: stable Disposition discussed with patient/family/significant other: Patient and family Case discussed with consulting clinician: N/A This note was generated with [employer] dictation software. It may contain incorrect words, spelling, and punctuation that were not noted in checking the note before signing. Lab Data Attestation: I reviewed the patient's lab results. Labs: Laboratory Results - last 24 hr 06/01/24 23:40 WBC 9.0 RBC 5.06 Hgb 15.4 H Hct 45.3 MCV 89.5 MCH 30.4 MCHC 34.0 RDW Std Deviation 42.7 RDW Coeff of Jessica 13.1 Plt Count 354 MPV 10.3 Immature Gran % (Auto) 0.400 Neut % (Auto) 51.4 Lymph % (Auto) 32.3 Hudspeth % (Auto) 12.2 H Eos % (Auto) 2.5 Baso % (Auto) 1.2 H Absolute Neuts (auto) 4.6 Absolute Lymphs (auto) 2.91 Nucleated RBC % 0 PT 13.1 INR 1.0 APTT 26.5 Sodium 138 Potassium 4.2 Chloride 104 Carbon Dioxide 24.0 Anion Gap 10 BUN 31 H Creatinine 1.54 H Estim Creat Clear Calc 32.99 Est GFR (MDRD) Af Amer 42 L Est GFR (MDRD) Non-Af 35 L BUN/Creatinine Ratio 20.1 H Glucose 109 H Calcium 9.6 Magnesium 2.1 Troponin I High Sens 8 POC Glucose 100 Radiography Diagnostic Testing: Clinical Impression(s) from Imaging Studies Brain CT 06/01/24 23:30 IMPRESSION: 1. No acute intracranial abnormality. If there is persistent clinical concern for acute ischemia, MRI is most sensitive. 2. Atrophy and chronic ischemic changes as above. One or more dose reduction techniques were used (e.g., Automated exposure control, adjustment of the mA and/or kV according to patient size, use of iterative reconstruction technique). [facility] Head[facility]Neck CTA 06/01/24 23:31 IMPRESSION: No large vessel high-grade stenosis or occlusion. One or more dose reduction techniques were used (e.g., Automated exposure control, adjustment of the mA and/or kV according to patient size, use of iterative reconstruction technique). Reading [facility] Chest X-Ray 06/01/24 23:55 IMPRESSION: No acute airspace abnormality. Reading Location: [facility] Discharge Plan Dx/Rx/DC Orders Clinical Impression: Brain TIA, Expressive aphasia, Acute renal insufficiency Disposition Disposition: Acute Care Hospital [facility] Discharge Date/Time: 06/02/24 01:22
[2024-06-01 23:36] VITALS: O2SAT 97
--- NOTE | 2024-06-01 23:55 | RAD_ITS ---
PROCEDURE: Chest radiograph REASON FOR EXAM: Neurologic deficit TECHNIQUE: Frontal view of the chest COMPARISON: None FINDINGS: Heart size is within normal limits. Small hiatal hernia. Lungs are clear. No sizable pneumothorax. RAD/Chest 1 View IMPRESSION: No acute airspace abnormality. Reading Location: [facility]
[2024-06-01 23:58] LABS: Bedside Glucose 100 mg/dL (74-106)
[2024-06-02] VITALS (10 sets, daily range): BP systolic 138–197; BP diastolic 66–111; PULSE 80–98; RESP 14–18; TEMP 36.4–36.9; O2SAT 96–100; BMI 24.9; BMI 25.0
[2024-06-02 00:15] LABS: Prothrombin Time (Protime)PT. 13.1 SECONDS (11.7-14.9)
[2024-06-02 00:16] LABS: Partial Thromboplast Time 26.5 Seconds (24.1-36.2)
[2024-06-02 00:17] LABS: Absolute Lymphocyte Count 2.91 X10^3/uL (0.83-4.51); Absolute Neutrophil Count 4.6 X10^3/uL (2.0-7.7); Basophil# 0.11 X10^3/uL; Basophil% 1.2 % (0-1); Eosinophil# 0.23 X10^3/uL; Eosinophils% 2.5 % (0-5); Hematocrit 45.3 % (37-47); Hemoglobin 15.4 g/dL (12.0-15.0); Lymphocyte # 2.91 X10^3/ul (0.83-4.51); Lymphocyte % 32.3 % (19-41); Mean Corpuscular Hgb 30.4 pg (27.0-32.0); Mean Corpuscular Volume 89.5 fL (81-99); Mean Platelet Vol. 10.3 fl (6.2-12.0); Monocyte% 12.2 % (0-10); NRBC Flagged by Analyzer 0 % (0-5); Neutrophil # 4.63 X10^3/uL (2.7-7.7); Neutrophil % 51.4 % (47-70); Platelet Count 354 K/mm3 (150-450); RBC Distribution Width CV 13.1 % (11.6-14.6); RBC Distribution Width SD 42.7 fl (35.1-43.9); Red Blood Count 5.06 M/mm3 (4.2-5.4)
[2024-06-02 00:29] LABS: Anion Gap 10 (5-15); BUN 31 mg/dL (7-18); BUN/Creat Ratio 20.1 RATIO (10-20); Calcium,Total 9.6 mg/dL (8.5-10.1); Chloride 104 mmol/L (98-107); Creatinine, Serum 1.54 mg/dL (0.55-1.02); EST Glomerular Filtration Rate 35 mL/min (>60); Est Glom Filt Rate - Afr Amer 42 mL/min (>60); Estimated Creatinine Clearance 32.99 ml/min; Glucose 109 mg/dL (74-106); Potassium 4.2 mmol/L (3.5-5.1); Sodium Level 138 mmol/L (136-145); Troponin-I HS 8 pg/mL (3.0-54.0)
--- NOTE | 2024-06-02 00:59 | PCM.HP.STD ---
HPI - General General Date of Admission: 06/02/24 Date of Service: 06/02/24 Chief Complaint: Expressive aphasia HPI Narrative The patient is a 73 y/o F w/ PMHx: CKD stage II per prior GFR trending, HTN, Hypothyroidism, Cognitive chronic impairment/mental delay who presents to the [facility] ED on 06/02/24 with history of onset expressive aphasia just after listening to a book audio with her cousin as were discussing what toppings everyone other [place] at approximately 2230 with her cousin who is present noting that her speech was nonsensical and she was obviously getting upset because she believed she was saying the appropriate thing but it was not coming out appropriate. They note that this was ongoing for approximately 45 minutes and she had even called over her sister to also assess Tawnya given the already eventually prompting ED evaluation to be cautious. The family does note that some of her answers frequently are atypical and this is chronic for her with her underlying cognitive chronic impairment/mental delay. As an example in the ED patient orientation questions were answered as the wrong president, her birthday was given instead of the year and she could not give the month but they state that this is her normal baseline. Workup in the ED included T97.5, heart rate 105, BP 162/99, respiratory rate 17, 99% on room air with most recent repeat vitals T97.5, heart rate 90, BP 183/111, respiratory rate 18, 96% room air, CBC with WC 9.0, he 1 15.4, platelet 354 without marked shift, unremarkable coags, BMP with BUN/creat 31/1.54, GFR 35, glucose 109, troponin 8, CT of the brain with no acute intracranial findings with atrophy and chronic ischemic changes with evidence of a chronic lacunar insult in the left basal ganglia, CTA head and neck with no evidence of any large high grade stenosis or occlusion, chest x-ray with no acute cardiopulmonary findings, EKG with sinus rhythm with no acute evidence of ischemia. [facility] Medical History CKD (chronic kidney disease), stage II Cognitive decline HTN (hypertension) Hypothyroidism Tachycardia Home Medications ?Medication ?Instructions ?Recorded ?Last Taken ?Type losartan 50 mg tablet 50 mg PO QDAY #30 tabs 01/25/24 Unknown Rx metoprolol succinate 50 mg 50 mg PO DAILY #30 tabs 01/25/24 Unknown Rx tablet,extended release 24 hr levothyroxine 75 mcg tablet 112.5 mcg (1.5 x 75 mcg) PO DAILY 04/21/24 Unknown Rx #45 tabs cyanocobalamin (vitamin B-12) 2,000 mcg (2 x 1,000 mcg) PO QDAY 05/20/24 Unknown Rx 1,000 mcg sublingual tablet #90 tabs Allergy/AdvReac Type Severity Reaction Status Date / Time egg Allergy Swelling Verified 06/01/24 23:14 Penicillins Allergy Unknown Verified 06/01/24 23:14 Family History Other Adopted Surgical History History of tonsillectomy History of surgery on left wrist Social History adopted: Yes household members: family current occupational status: retired current occupation: [employer] Smoking Status: Never smoker alcohol intake: never substance use type: does not use caffeine: Yes (pop one per day) eating out: 1-3 times/week what type of physical activity do you participate in: walking seatbelt use: always do you feel safe at home: Yes ROS SRINATH Narrative Admission Review of Systems: CONSTITUTIONAL: No weight loss, fever, chills, weakness or fatigue. HEENT: Eyes: No visual loss, blurred vision, double vision or yellow sclerae. Ears, Nose, Throat: No hearing loss, sneezing, congestion, runny nose or sore throat. SKIN: No rash or itching, lesions, wounds. CARDIOVASCULAR: No chest pain, chest pressure or chest discomfort, palpitations, edema, orthopnea, syncopal events. RESPIRATORY: No shortness of breath, cough or sputum, wheezing, hemoptysis. GASTROINTESTINAL: No anorexia, nausea, vomiting or diarrhea, abdominal pain, melena, BRBPR. GENITOURINARY: No dysuria, frequency, urgency or retention. NEUROLOGICAL: +Cognitive chronic impairment/mental delay, acute expressive asphasia. No headache, dizziness, syncope, paralysis, ataxia, numbness or tingling in the extremities, focal weakness, change in bowel or bladder control, seizure. MUSCULOSKELETAL: + muscle, back pain, joint pain or stiffness. HEMATOLOGIC: No anemia, bleeding or bruising. LYMPHATICS: No enlarged nodes. No history of splenectomy. PSYCHIATRIC: No history of depression or anxiety. ENDOCRINOLOGIC: No reports of sweating, cold or heat intolerance. No polyuria or polydipsia. ALLERGIES: + Hx egg, PCN allergy. Vital Signs Vital Signs Vital Signs: 06/01/24 23:14 06/01/24 23:30 06/01/24 23:36 Temperature 97.5 F L Temperature Source Temporal Pulse Rate 105 H 91 Respiratory Rate 17 14 Blood Pressure 162/99 H 160/103 H Blood Pressure Mean 120 122 Pulse Ox 99 97 97 Oxygen Delivery Method Room Air Room Air Room Air 06/02/24 00:00 06/02/24 00:12 Temperature Temperature Source Pulse Rate 89 89 Respiratory Rate 14 14 Blood Pressure 171/87 H 171/87 H Blood Pressure Mean 115 115 Pulse Ox 96 96 Oxygen Delivery Method Room Air Room Air Weight Weight: 166 lb 14.239 oz Body Mass Index (BMI) 24.6 Physical Exam Narrative Physical Examination: General: Awake, alert, oriented to self and cousins present however she gives the wrong president, wrong year and wrong month which the answers given per her cousin's report are stable baseline wrong with her underlying chronic impairment/mental delay, patient is cooperative, seated upright in ED bed, answers are fluid and not garbled but often wrong technically. Skin: Normal color, normal turgor, no icterus, no cyanosis. HEENT: AT/NC, EOMI, PERRLA, mildly dry MM, no carotid bruits or JVD noted. Lungs: Mildly diminished, greater bases, poor effort, no rales, ronchi or wheezing. Heart: Regular rate and rhythm; no gallop, rub audible. Abdomen: Soft, NTTP, ND, mildly hyperactive BS, no appreciated HSM. Extremities: No cyanosis, clubbing, or edema. Neurological: Patient awake, alert, oriented as noted, cognitive function currently intact but this is decreased chronically given underlying cognitive impairment/delay pupils equally reactive to light and accommodation, cranial nerves grossly normal, moving all 4 extremities, no focal deficits, strength preserved, finger-nose and [id number] appropriate, equivocal Babinski. Psychiatric: Affect appears normal, no acute evidence of depressive or anxiety feelings. Results Lab / Micro Data 06/01/24:40 06/01/24 23:40 Labs: Laboratory Results - last 24 hr 06/01/24 23:40: WBC 9.0, RBC 5.06, Hgb 15.4 H, Hct 45.3, MCV 89.5, MCH 30.4, MCHC 34.0, RDW Std Deviation 42.7, RDW Coeff of Jessica 13.1, Plt Count 354, MPV 10.3, Immature Gran % (Auto) 0.400, Neut % (Auto) 51.4, Lymph % (Auto) 32.3, Elbert % (Auto) 12.2 H, Eos % (Auto) 2.5, Baso % (Auto) 1.2 H, Absolute Neuts (auto) 4.6, Absolute Lymphs (auto) 2.91, Nucleated RBC % 0, PT 13.1, INR 1.0, APTT 26.5, Sodium 138, Potassium 4.2, Chloride 104, Carbon Dioxide 24.0, Anion Gap 10, BUN 31 H, Creatinine 1.54 H, Estim Creat Clear Calc 32.99, Est GFR (MDRD) Af Amer 42 L, Est GFR (MDRD) Non-Af 35 L, BUN/Creatinine Ratio 20.1 H, Glucose 109 H, Calcium 9.6, Troponin I High Sens 8, POC Glucose 100 Imaging Radiology Impression Brain CT 06/01/24 23:30 IMPRESSION: 1. No acute intracranial abnormality. If there is persistent clinical concern for acute ischemia, MRI is most sensitive. 2. Atrophy and chronic ischemic changes as above. One or more dose reduction techniques were used (e.g., Automated exposure control, adjustment of the mA and/or kV according to patient size, use of iterative reconstruction technique). Reading Location: [facility] Head/Neck CTA 06/01/24 23:31 IMPRESSION: No large vessel high-grade stenosis or occlusion. One or more dose reduction techniques were used (e.g., Automated exposure control, adjustment of the mA and/or kV according to patient size, use of iterative reconstruction technique). Reading Location: [facility] Chest X-Ray 06/01/24 23:55 IMPRESSION: No acute airspace abnormality. Reading Location: [facility] Assessment & Plan Assessment/Plan (1) Acute renal insufficiency: (2) Expressive aphasia: PLAN: Plan The patient is a 73 y/o F w/ PMHx: CKD stage II per prior GFR trending, HTN, Hypothyroidism, Cognitive chronic impairment/mental delay who presents to the [facility] ED on 06/02/24 with history of onset expressive aphasia just after listening to a book audio with her cousin as were discussing what toppings everyone other pizza at approximately 2230 with her cousin who is present noting that her speech was nonsensical and she was obviously getting upset because she believed she was saying the appropriate thing but it was not coming out appropriate. #1. Expressive aphasia concerning for TIA/CVA: Will admit to PCU, will obtain MRI Brain, ECHO without contrast given acute renal insufficiency, PT/OT/Speech/Nutrition evaluation per protocol. Will allow permissive HTN, administer full-strength aspirin therapy now and continue baby dose aspirin following, maintain on aspiration and fall precautions. Mag, TSH, FLP, HgbA1c requested. Neurology consultation placed. #2. Acute renal insufficiency/elevated creatinine on CKD stage II per previous GFR trending: Admission BUN/creatinine 31/1.54, GFR 35, normally in the lower 60 range, baseline creatinine noted primarily 0.9, will judiciously hydrate and repeat CMP in AM. #3. Chronic cognitive impairment/mental delay: Complicates presentation as patient answers are often comprehended but not the correct answer which is her baseline per discussion with several of her family members, case management consulted for discharge planning. #4. Hypertension: Given presentation will maintain permissive hypertension with as needed agents per stroke protocol. #5. Hypothyroidism: We will continue patient home levothyroxine regimen, TSH requested. #6. DVT prophylaxis: Lovenox. #7. CODE status: Patient does not have healthcare power of tax attorney or living will in place but notes she would want her cousins who are present x 3 to make medical decisions for her if she was unable. Discussed CODE status at length including difference between FULL code, DNR-CCA and DNR-CC status. Following discussions about the differences in these status, requested Full Code status. Advanced Care Planning Face to Face Time: 16 minutes. Charges/Coding Visit Charges Inpatient E&M: 56353 Init Hosp L2 Procedures Hospitalists Procedures: 34220 Advncd Care Plan 30 Min
[2024-06-02] MEDS: 0.9% Normal Saline (500mL Bag) 500 ML 999 ML IV (01:21)
[2024-06-02 01:35] LABS: Magnesium 2.1 mg/dL (1.6-2.6)
--- NOTE | 2024-06-02 01:56 | ECHOCS_ITS ---
Reason For Study Reason For Study: TIA/CVA Procedure This was a 2D Doppler, Color Flow transthoracic echocardiogram. The study was technically difficult. Contrast injection was performed. Exam performed portable in patient room. Left Ventricle Normal LV size. The estimated ejection fraction is 65 %. No evidence for diastolic dysfunction. No regional wall motion abnormalities noted. Right Ventricle Normal RV size. Normal systolic function. Atria The left and right atria are normal. No doppler evidence for ASD. Mitral Valve There is moderate mitral annular calcification. There is no mitral valve stenosis. Trivial mitral valve insufficiency. Tricuspid Valve There is no tricuspid stenosis. Unable to estimate RV systolic pressure due to inadequate jet, pulmonary artery pressure probably normal. Aortic Valve Trisinus/trileaflet aortic valve. Aortic sclerosis, no stenosis. There is no aortic stenosis. No aortic valve insufficiency. Pulmonic Valve There is no pulmonic valvular stenosis. No pulmonic valve insufficiency. Great Vessels Normal sized aortic root. Pericardium/Pleural No pericardial effusion. Medication Diluted definity 1ml given slow IV push to enhance endocardial definition. MMode/2D Measurements & Calculations LVIDd: 4.6 cm IVSd: 1.4 cm Ao root diam: 3.0 cm LVIDs: 3.2 cm LVPWd: 1.3 cm RVDd: 3.8 cm FS: 31.6 % LAV(MOD-bp): 39.1 ml LVAd ap4: 28.2 cm2 SV(MOD-sp4): 53.4 ml LAV(MOD-bp) Indexed: 20.3 ml/m2 LVLd ap4: 6.8 cm SI(MOD-sp4): 27.8 ml/m2 LAV(MOD-sp2): 44.5 ml EDV(MOD-sp4): 91.9 ml LAV(MOD-sp4): 33.9 ml EDV(sp4-el): 99.0 ml LVAs ap4: 17.0 cm2 LVLs ap4: 6.0 cm ESV(MOD-sp4): 38.4 ml ESV(sp4-el): 40.8 ml EF(MOD-sp4): 58.2 % EF(sp4-el): 58.8 % SV(sp4-el): 58.2 ml LA A4 area: 14.3 cm2 LA dimension(2D): 3.8 cm RA A4 area: 15.4 cm2 TAPSE: 1.7 cm Time Measurements MV dec time: 0.22 sec Doppler Measurements & Calculations MV E max darren: 50.0 cm/sec Lat Peak E' Darren: 4.5 cm/sec Med Peak E' Darren: 5.6 cm/sec MV A max darren: 84.7 cm/sec E/E' lat: 11.1 E/E' med: 8.9 MV E/A: 0.59 MV V2 max: 119.9 cm/sec MV P1/2t max darren: 51.0 cm/sec Ao V2 max: 112.2 cm/sec MV max P.8 mmHg MV P1/2t: 68.1 msec Ao max P.0 mmHg MV V2 mean: 51.8 cm/sec MV dec slope: 219.1 cm/sec2 Ao V2 mean: 84.4 cm/sec MV mean P.3 mmHg MVA(P1/2t): 3.2 cm2 Ao mean P.2 mmHg MV V2 VTI: 22.0 cm Ao V2 VTI: 24.6 cm AV (velocity ratio): 0.95 LV V1 max: 105.0 cm/sec PA V2 max: 99.0 cm/sec LV V1 max P.4 mmHg LV V1 mean P.7 mmHg LV V1 mean: 78.1 cm/sec LV V1 VTI: 23.4 cm ECHO/Echo Complete W/ Contrast Interpretation Summary The estimated ejection fraction is 65 %. No evidence for diastolic dysfunction. Trivial mitral valve insufficiency. Ordering Physician: Sabiha Amado Performed By: Tony Corbett RCS
--- NOTE | 2024-06-02 01:56 | MRI_ITS ---
PROCEDURE: BRAIN WITHOUT CONTRAST REASON FOR EXAM: TIA. TECHNIQUE: Multiplanar, multisequence MRI of the brain without intravenous gadolinium-based contrast. COMPARISON: Head CT of 06/01/2024. FINDINGS: [id number] right and mild left maxillary sinus mucosal thickening is seen. Moderate bilateral ethmoid air cell mucosal thickening is noted. Mild left sphenoid sinus mucosal thickening is seen. No air-fluid level is noted. The remaining paranasal sinuses appear clear, as do the mastoid air cells. Diffusion-weighted images demonstrate no area of restricted diffusion. No intracranial mass or mass effect is seen. No extra-axial fluid collections noted. Ventricles appear symmetric and within the normal range. No orbital pathology is noted. Moderate bilateral cerebral and mild pontine white matter changes are seen, consistent with chronic ischemic changes of small-vessel disease. MRI/Brain without Contrast IMPRESSION: 1. Chronic appearing paranasal sinusitis. 2. Moderate bilateral cerebral and mild pontine white matter changes, consisten t with chronic ischemic changes of small-vessel disease. 3. No acute intracranial process is noted. Reading Location: [id number]
[2024-06-02] MEDS: 0.9% Normal Saline (1000mL) 1,000 ML 100 ML IV (02:19)
[2024-06-02] MEDS: Aspirin 325 MG Tablet PO (02:19)
[2024-06-02] MEDS: Levothyroxine 75 MCG Tablet 112.5 MCG PO (06:00)
[2024-06-02 07:52] LABS: Absolute Lymphocyte Count 2.58 X10^3/uL (0.83-4.51); Absolute Neutrophil Count 4.6 X10^3/uL (2.0-7.7); Basophil% 1.2 % (0-1); Eosinophil# 0.16 X10^3/uL; Eosinophils% 1.9 % (0-5); Hematocrit 40.1 % (37-47); Hemoglobin 13.2 g/dL (12.0-15.0); Lymphocyte # 2.58 X10^3/ul (0.83-4.51); Lymphocyte % 30.6 % (19-41); Mean Corp Hgb Conc 32.9 g/dL (32-36); Mean Corpuscular Hgb 29.3 pg (27.0-32.0); Mean Corpuscular Volume 89.1 fL (81-99); Mean Platelet Vol. 10.3 fl (6.2-12.0); Monocyte# 0.99 X10^3/uL; Monocyte% 11.7 % (0-10); NRBC Flagged by Analyzer 0 % (0-5); Neutrophil # 4.56 X10^3/uL (2.7-7.7); Neutrophil % 54.1 % (47-70); Platelet Count 322 K/mm3 (150-450); RBC Distribution Width SD 42.6 fl (35.1-43.9); White Blood Count 8.4 K/mm3 (4.4-11.0)
[2024-06-02 08:35] LABS: ALB/GLOB Ratio 0.9 RATIO (0.9-2.4); AST(SGOT) 10 U/L (15-37); Alanine Aminotransfer ALT/SGPT 13 U/L (13-56); Albumin, Serum 3.1 g/dL (3.2-5.0); Alkaline Phosphatase 92 U/L (45-117); Anion Gap 8 (5-15); BUN 30 mg/dL (7-18); BUN/Creat Ratio 26.5 RATIO (10-20); Calcium,Total 8.6 mg/dL (8.5-10.1); Chloride 106 mmol/L (98-107); Creatinine, Serum 1.13 mg/dL (0.55-1.02); EST Glomerular Filtration Rate 50 mL/min (>60); Est Glom Filt Rate - Afr Amer 60 mL/min (>60); Estimated Creatinine Clearance 44.96 ml/min; Globulin 3.3 g/dL (2.2-4.2); Glucose 86 mg/dL (74-106); Potassium 4.2 mmol/L (3.5-5.1); Protein, Total 6.4 g/dL (6.4-8.2); Sodium Level 138 mmol/L (136-145)
[2024-06-02 09:10] LABS: Hemoglobin A1c 5.4 % (3.8-5.6)
[2024-06-02] MEDS: Enoxaparin 40 MG/0.4 ML Syringe SC (10:41)
[2024-06-02] MEDS: Acetaminophen 325 MG Tablet 650 MG PO (12:17)
--- NOTE | 2024-06-02 13:02 | NEURO.CONS ---
Assessment and Plan: Neuro Assessment/Plan 73 y/o woman with h/o CKD stage II per prior GFR trending, HTN, Hypothyroidism, Cognitive chronic impairment/mental delay p/w after an episode of transient expressive aphasia, lasted for [address] head- no acute intracranial process. CTA- no LVO or significant stenosis. MRI brain - no acute stroke. Patient reports that she was not taking antiplatelets before coming to the hospital. No acute events overnight. Patient reports feeling back to normal. NIHSS-0. Diagnosis:TIA Plan: ASA and statin. Follow up lipid profile and TTE. 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 I personally attended this patient and spent a total time of 50 minutes evaluating this patient including clinical assessment, review of chart, medical history imaging, and determining appropriate treatment and workup. HPI Consult Data Date of Consult: 06/02/24 HPI Narrative HPI Narrative: 73 y/o woman with h/o CKD stage II per prior GFR trending, HTN, Hypothyroidism, Cognitive chronic impairment/mental delay p/w after an episode of transient expressive aphasia, lasted for [address] head- no acute intracranial process. CTA- no LVO or significant stenosis. MRI brain - no acute stroke. Patient reports that she was not taking antiplatelets before coming to the hospital. No acute events overnight. Patient reports feeling back to normal. NIHSS-0. [facility] Medical History CKD (chronic kidney disease), stage II Cognitive decline HTN (hypertension) Hypothyroidism Tachycardia Home Medications ?Medication ?Instructions ?Recorded ?Last Taken ?Type losartan 50 mg tablet 50 mg PO QDAY #30 tabs 01/25/24 Unknown Rx metoprolol succinate 50 mg 50 mg PO DAILY #30 tabs 01/25/24 Unknown Rx tablet,extended release 24 hr levothyroxine 75 mcg tablet 112.5 mcg (1.5 x 75 mcg) PO DAILY 04/21/24 Unknown Rx #45 tabs cyanocobalamin (vitamin B-12) 2,000 mcg (2 x 1,000 mcg) PO QDAY 05/20/24 Unknown Rx 1,000 mcg sublingual tablet #90 tabs Allergy/AdvReac Type Severity Reaction Status Date / Time egg Allergy Swelling Verified 06/01/24 23:14 Penicillins Allergy Unknown Verified 06/01/24 23:14 Family History Other Adopted Surgical History History of tonsillectomy History of surgery on left wrist Social History adopted: Yes household members: family current occupational status: retired 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 [employer] Smoking Status: Never smoker alcohol intake: never substance use type: does not use caffeine: Yes (pop one per day) eating out: 1-3 times/week what type of physical activity do you participate in: walking seatbelt use: always do you feel safe at home: Yes Vital Signs Vital Signs Vital Signs: 06/01/24 23:14 06/01/24 23:30 06/01/24 23:36 Temperature 97.5 F L Temperature Source Temporal Pulse Rate 105 H 91 Respiratory Rate 17 14 Blood Pressure 162/99 H 160/103 H Blood Pressure Mean 120 122 Blood Pressure Source Blood Pressure Position Blood Pressure Location Pulse Ox 99 97 97 Oxygen Delivery Method Room Air Room Air Room Air 06/02/24 00:00 06/02/24 00:12 06/02/24 00:30 Temperature Temperature Source Pulse Rate 89 89 88 Respiratory Rate 14 14 18 Blood Pressure 171/87 H 171/87 H 167/108 H Blood Pressure Mean 115 115 127 Blood Pressure Source Blood Pressure Position Blood Pressure Location Pulse Ox 96 96 96 Oxygen Delivery Method Room Air Room Air Room Air 06/02/24 01:00 06/02/24 01:00 06/02/24 01:12 Temperature 97.5 F L Temperature Source Pulse Rate 90 90 90 Respiratory Rate 18 18 18 Blood Pressure 183/111 H 183/111 H 183/111 H Blood Pressure Mean 135 135 135 Blood Pressure Source Blood Pressure Position Blood Pressure Location Pulse Ox 96 96 96 Oxygen Delivery Method Room Air Room Air 06/02/24 01:42 06/02/24 05:56 06/02/24 08:45 Temperature 98.4 F 98.2 F 98.0 F Temperature Source Oral Oral Oral Pulse Rate 92 89 98 Respiratory Rate 16 16 16 Blood Pressure 197/86 H 160/66 H 154/76 H Blood Pressure Mean 123 97 102 Blood Pressure Source Monitor Monitor Monitor Blood Pressure Position Semi-Fowlers Semi-Fowlers Semi-Fowlers Blood Pressure Location Right Arm Right Arm Right Arm Pulse Ox 100 97 98 Oxygen Delivery Method Room Air Room Air Room Air 06/02/24 12:33 Temperature 97.7 F L Temperature Source Oral Pulse Rate 81 Respiratory Rate 16 Blood Pressure 174/71 H Blood Pressure Mean 105 Blood Pressure Source Monitor Blood Pressure Position Sitting Blood Pressure Location Left Arm Pulse Ox 97 Oxygen Delivery Method Room Air Weight Weight: 77 kg Body Mass Index (BMI) 25.0 EEG Results Procedure Details EEG Procedure Details: ROYER RODRIGUEZ is a 73 year old F with a past medical history of , who presents for evaluation of Electroencephalogram on DATE at TIME NIHSS NIHSS Nursing Documentation NIHSS Nursing Documentation: NIH Stroke Scale Start: 06/01/24 23:18 Freq: Status: Discharge Protocol: Activity Type Activity Date Activity User E-sign Co-sign Detail Recorded Client Recorded Date Recorded By Document 06/01/24 23:18 ET [id number] 06/01/24 23:18 ET 06/01/24 23:18 NIH Stroke Scale [NIHSS] A score of 0 is normal or asymptomatic . Total possible score is 42. Inpatient: RN or Physician to activate a stroke alert for onset of new stroke symptoms or with NIHSS increase >/= 3 points. Following change in neurological status, NIHSS will be performed per physician order or more frequently PRN. -1a. Level of Consciousness Alert; keenly responsive -1b. LOC Questions Answers BOTH questions correctly. -1c. LOC Commands Performs both tasks correctly . -2. Best Gaze Normal -3. Visual No visual loss -4. Facial Palsy Normal symmetrical movements -5a. Left Arm No drift; arm holds 90 (or 45 ) degrees for full 10 seconds -5b. Right Arm No drift; arm holds 90 (or 45 ) degrees for full 10 seconds -6a. Left Leg No drift; leg holds 30-degree position for full 5 seconds -6b. Right Leg No drift; leg holds 30-degree position for full 5 seconds -7. Limb Ataxia Absent -8. Sensory Normal; no sensory loss -9. Best Language No aphasia; normal -10. Dysarthria Normal -11. Extinction and Inattention No abnormality -Total 0 Query Text:A score of 0 is normal or asymptomatic. Total possible score is 42 . ED: Notify Physician for NIHSS increase by > / = 3 points. Inpatient: RN or Physician to activate a stroke alert for NIHSS increase of > / = 3 points. NIHSS: Ischemic Stroke/TIA Start: 06/02/24 01:56 Text: For PCU Patients: NIH and Neuro Check every 4 Status: Active hours, PRN and with change in RN caregiver. Freq: [id number] Protocol: Activity Type Activity Date Activity User E-sign Co-sign Detail Recorded Client Recorded Date Recorded By Document 06/02/24 12:33 [id number] 06/02/24 12:34 06/02/24 12:33 -1a. Level of Consciousness Alert; keenly responsive -1b. LOC Questions Answers BOTH questions correctly. -1c. LOC Commands Performs both tasks correctly . -2. Best Gaze Normal -3. Visual No visual loss -4. Facial Palsy Normal symmetrical movements -5a. Left Arm No drift; arm holds 90 (or 45 ) degrees for full 10 seconds -5b. Right Arm No drift; arm holds 90 (or 45 ) degrees for full 10 seconds -6a. Left Leg No drift; leg holds 30-degree position for full 5 seconds -6b. Right Leg No drift; leg holds 30-degree position for full 5 seconds -7. Limb Ataxia Absent -8. Sensory Normal; no sensory loss -9. Best Language No aphasia; normal -10. Dysarthria Mild-to- moderate dysarthria; -11. Extinction and Inattention No abnormality -Total 1 Query Text:A score of 0 is normal or asymptomatic. Total possible score is 42 . ED: Notify Physician for NIHSS increase by > / = 3 points. Inpatient: RN or Physician to activate a stroke alert for NIHSS increase of > / = 3 points. Coma Scale [Assess] -Eye Opening Spontaneous -Motor Obeys Commands -Verbal Oriented [Total] -Coma Scale Total 15 NIHSS 1a. Level of Consciousness: Alert; keenly responsive 1b. LOC Questions: Answers BOTH questions correctly. 1c. LOC Commands: Performs both tasks correctly. 2. Best Gaze: Normal 3. Visual: No visual loss 4. Facial Palsy: Normal symmetrical movements 5a. Left Arm: No drift; arm holds 90 (or 45) degrees for full 10 seconds 5b. Right Arm: No drift; arm holds 90 (or 45) degrees for full 10 seconds 6a. Left Leg: No drift; leg holds 30-degree position for full 5 seconds 6b. Right Leg: No drift; leg holds 30-degree position for full 5 seconds 7. Limb Ataxia: Absent 8. Sensory: Normal; no sensory loss 9. Best Language: No aphasia; normal 10. Dysarthria: Normal 11. Extinction and Inattention: No abnormality Total: 0 Physical Exam Narrative General: The patient appears nutritionally appropriate, well-groomed, and appears comfortable in no acute distress. Mental Status:? The patient?s mental status was normal including orientation.? Language was intact.? Cranial nerves:? Visual de jesus full, and extra-ocular motion was intact. Symmetric face. Motor: Normal in all extremities. Sensation: Intact in all extremities.? Coordination:? Bilateral finger to nose was normal.? There was no dysmetria. Gait:? deferred. Lab / Micro Data 06/02/24 06:44 06/02/24 06:44 Labs: Laboratory Results - last 24 hr 06/01/24 23:40: WBC 9.0, RBC 5.06, Hgb 15.4 H, Hct 45.3, MCV 89.5, MCH 30.4, MCHC 34.0, RDW Std Deviation 42.7, RDW Coeff of Jessica 13.1, Plt Count 354, MPV 10.3, Immature Gran % (Auto) 0.400, Neut % (Auto) 51.4, Lymph % (Auto) 32.3, [place] % (Auto) 12.2 H, Eos % (Auto) 2.5, Baso % (Auto) 1.2 H, Absolute Neuts (auto) 4.6, Absolute Lymphs (auto) 2.91, Nucleated RBC % 0, PT 13.1, INR 1.0, APTT 26.5, Sodium 138, Potassium 4.2, Chloride 104, Carbon Dioxide 24.0, Anion Gap 10, BUN 31 H, Creatinine 1.54 H, Estim Creat Clear Calc 32.99, Est GFR (MDRD) Af Amer 42 L, Est GFR (MDRD) Non-Af 35 L, BUN/Creatinine Ratio 20.1 H, Glucose 109 H, Calcium 9.6, Magnesium 2.1, Troponin I High Sens 8, POC Glucose 100 06/02/24 06:44: WBC 8.4, RBC 4.50, Hgb 13.2, Hct 40.1, MCV 89.1, MCH 29.3, MCHC 32.9, RDW Std Deviation 42.6, RDW Coeff of Jessica 13.0, Plt Count 322, MPV 10.3, Immature Gran % (Auto) 0.500, Neut % (Auto) 54.1, Lymph % (Auto) 30.6, [place] % (Auto) 11.7 H, Eos % (Auto) 1.9, Baso % (Auto) 1.2 H, Absolute Neuts (auto) 4.6, Absolute Lymphs (auto) 2.58, Nucleated RBC % 0, Sodium 138, Potassium 4.2, Chloride 106, Carbon Dioxide 24.0, Anion Gap 8, BUN 30 H, Creatinine 1.13 H, Estim Creat Clear Calc 44.96, Est GFR (MDRD) Af Amer 60, Est GFR (MDRD) Non-Af 50 L, BUN/Creatinine Ratio 26.5 H, Glucose 86, Hemoglobin A1c 5.4, Calcium 8.6, Total Bilirubin 0.50, AST 10 L, ALT 13, Alkaline Phosphatase 92, Total Protein 6.4, Albumin 3.1 L, Globulin 3.3, Albumin/Globulin Ratio 0.9, TSH 2.260 Imaging Radiology Impression Brain CT 06/01/24 23:30 IMPRESSION: 1. No acute intracranial abnormality. If there is persistent clinical concern for acute ischemia, MRI is most sensitive. 2. Atrophy and chronic ischemic changes as above. One or more dose reduction techniques were used (e.g., Automated exposure control, adjustment of the mA and/or kV according to patient size, use of iterative reconstruction technique). Reading Location: [facility] Head/Neck CTA 06/01/24 23:31 IMPRESSION: No large vessel high-grade stenosis or occlusion. One or more dose reduction techniques were used (e.g., Automated exposure control, adjustment of the mA and/or kV according to patient size, use of iterative reconstruction technique). Reading Location: [facility] Chest X-Ray 06/01/24 23:55 IMPRESSION: No acute airspace abnormality. Reading Location: [facility] Brain MRI 06/02/24 01:56 IMPRESSION: 1. Chronic appearing paranasal sinusitis. 2. Moderate bilateral cerebral and mild pontine white matter changes, consistent with chronic ischemic changes of small-vessel disease. 3. No acute intracranial process is noted. Reading Location: [address] Active Medications Active Medications Active Medications: Current Medications Generic Name Dose Route Start Last Admin Trade Name Freq PRN Reason Stop Dose Admin Acetaminophen 650 mg 06/02/24 01:56 06/02/24 12:17 Acetaminophen 325 Mg Tablet PO 650 mg Q4H PRN PRN Administration Fever, pain 1-01/16 Al Hydroxide/Mg Hydroxide 30 ml 06/02/24 01:56 Mag Hydrox/Al Hydrox/Simeth 30 Ml Udc PO Q6H PRN PRN Gastric Burning Aspirin 81 mg 06/03/24 08:00 Aspirin 81 Mg Tab.Chew PO BREAKFAST ERIKA Enoxaparin Sodium 40 mg 06/02/24 10:00 06/02/24 10:41 Enoxaparin 40 Mg/0.4 Ml Syringe SC 40 mg DAILY ERIKA Administration Guaifenesin 20 ml 06/02/24 01:56 Guaifenesin 10 Ml Udc (200mg/10ml) PO Q4H PRN PRN COUGH Hydralazine HCl 5 mg 06/02/24 01:56 Hydralazine 20 Mg/Ml Vial IV 06/03/24 01:56 Q30M PRN maintain BP parameters with HR <60 Labetalol HCl 10 - 20 mg 06/02/24 01:56 Labetalol 20mg/4ml Syringe IV 06/03/24 01:56 Q10M PRN PRN maintain BP parameters with HR >/=60 Levothyroxine Sodium 112.5 mcg 06/02/24 06:00 06/02/24 06:00 Levothyroxine 75 Mcg Tablet PO 112.5 mcg DAILY@0600 ERIKA Administration Melatonin 3 mg 06/02/24 01:56 Melatonin 3 Mg Tablet PO QHS PRN PRN INSOMNIA Ondansetron HCl 4 mg 06/02/24 01:56 Ondansetron 4 Mg/2 Ml Vial IV Q8H PRN PRN NAUSEA/VOMITING Prochlorperazine Edisylate 5 mg 06/02/24 01:56 Prochlorperazine 10 Mg/2 Ml Vial IV Q4H PRN PRN Breakthrough Nausea/Vomiting Senna/Docusate Sodium 2 tablet 06/02/24 01:56 Senna/Docusate Sodium 1 Tablet PO BID PRN PRN Constipation Sodium Chloride 10 - 40 ml 06/02/24 01:31 0.9% Saline Lock 10 Ml Syringe IV UD PRN SALINE FLUSH
[2024-06-02 14:02] LABS: Cholesterol 176 mg/dL (200); High Density Lipoprotein 46 mg/dL; Triglycerides 117 mg/dL; Very Low Density Lipoprotein 23 mg/dL (5-40)
--- NOTE | 2024-06-02 15:38 | PCM.DC ---
Discharge Instructions Diet Discharge Diet: Low fat / Low cholesterol DC O2, CPAP, BIPAP needs Home O2 Discharge instructions: No Dressing / Incision Call your doctor if you observe: Fever of 101 or Higher, Shortness of breath, Dizziness, Fainting spells, Swelling in the ankles, Chest pain and Increased palpitations (irregular heartbeat) Follow Up Care Test Results: Test results from this visit will be discussed in further detail at your follow-up appointment, if applicable. Discharge Plan Admission Admit Date/Time: 06/02/24 00:59 Attending Provider: Leandro Waters Primary Care Provider: Jaelyn Cisse Consulting Providers: Italo Chung; Hannah Arciniega; Marquita Loco; Elidia Pro; Neema Tipton; Rosalio Meek; Debra Proctor; Dinesh Bach; Geovanny Palmer; Jaswinder Mark; Riri Quinn; Alex Lowe; Gwen Hennessy; Dia Fraser; Casa Vann; Juan Hollis; Grace Humphrey; Sergey Rausch; Sakina Jacob; Taryn Santos; Sabiha Amado Instructions Patient Instructions: ED TIA: Transient Ischemic Attack Discharge Orders/Prescriptions Prescriptions: New aspirin 81 mg Tablet,Chewable 81 mg PO BREAKFAST 30 Days Qty: 30 0RF atorvastatin [Lipitor] 40 mg tablet 40 mg PO QHS 30 Days Qty: 30 0RF Continued metoprolol succinate 50 mg tablet extended release 24 hr 50 mg PO DAILY Qty: 30 11RF losartan 50 mg tablet 50 mg PO QDAY Qty: 30 11RF Rx Instructions: Take at suppertime levothyroxine 75 mcg tablet 112.5 mcg PO DAILY Qty: 45 1RF cyanocobalamin (vitamin B-12) 1,000 mcg tablet, sublingual 2,000 mcg PO QDAY Qty: 90 1RF Referrals / Follow Up: Jaelyn Cisse MD [Primary Care Provider] - Within 1 Week Disposition Disposition (needs filled in before D/C Order can be placed): Home, Self Care
--- NOTE | 2024-06-02 16:12 | PHA.DC_ITS ---
Pharmacy [facility] has performed discharge medication reconciliation and counseling for this patient. 1. ASPIRIN 81MG PO BREAKFAST 2. ATORVASTATIN 40MG PO QHS The patient's discharge medication list was reviewed for discrepancies and discrepancies were resolved. The patient was counseled on the following discharge medications and changes in medications for homegoing were reviewed. The Reason for Use, instructions for use, and potential side effects were reviewed for all new medications. The patient's questions regarding all of their medications were answered. The patient was able to verbally demonstrate an understanding of their discharge medications. Medications at Discharge Home Medications losartan 50 mg tablet 50 mg PO QDAY #30 tabs 01/25/24 metoprolol succinate 50 mg tablet,extended release 24 hr 50 mg PO DAILY #30 tabs 01/25/24 levothyroxine 75 mcg tablet 112.5 mcg (1.5 x 75 mcg) PO DAILY #45 tabs 04/21/24 cyanocobalamin (vitamin B-12) 1,000 mcg sublingual tablet 2,000 mcg (2 x 1,000 mcg) PO QDAY #90 tabs 05/20/24 aspirin 81 mg chewable tablet 81 mg PO BREAKFAST 30 days #30 tabs 06/02/24 atorvastatin 40 mg tablet (Lipitor) 40 mg PO QHS 30 days #30 tabs 06/02/24
--- NOTE | 2024-06-02 16:19 | CASEMGMT ---
Patient has order for discharge. No therapy recommended at discharge. RN CM in to discuss needs at discharge, family at bedside. Patient and family deny needs or help at discharge. Patient and family had no further questions or concerns.
--- NOTE | 2024-06-02 17:13 | DS.PCM_ITS ---
Providers Date of Admission: 06/02/24 Primary Care Physician: Dr. Jaelyn Cisse MD Consultations 06/02/24 01:56 Consult: Tele-Neurology Routine Consulting Provider: [facility] Reason for Consult: Acute Ischemic Stroke/TIA EMERGENT Consult: No MD Notified: Yes Date Notified: 06/02/24 Time Notified: 02:53 Method of Notification: Answering Service Nursing Unit Staff Notify [facility] of Tele-Neurology Consult: Yes Reason For Visit: TIA Diagnosis Discharge Diagnosis (1) Acute renal insufficiency: Status: Acute Code(s): N28.9 - Disorder of kidney and ureter, unspecified (2) Expressive aphasia: Status: Acute Code(s): R47.01 - Aphasia Medications at Discharge Home Medications losartan 50 mg tablet 50 mg PO QDAY #30 tabs 01/25/24 metoprolol succinate 50 mg tablet,extended release 24 hr 50 mg PO DAILY #30 tabs 01/25/24 levothyroxine 75 mcg tablet 112.5 mcg (1.5 x 75 mcg) PO DAILY #45 tabs 04/21/24 cyanocobalamin (vitamin B-12) 1,000 mcg sublingual tablet 2,000 mcg (2 x 1,000 mcg) PO QDAY #90 tabs 05/20/24 aspirin 81 mg chewable tablet 81 mg PO BREAKFAST 30 days #30 tabs 06/02/24 atorvastatin 40 mg tablet (Lipitor) 40 mg PO QHS 30 days #30 tabs 06/02/24 Hospital Course Operations None Procedures 2-D Echocardiogram Summary of Care Provided Minutes Spent on Discharge: 35 Hospital Course: Per HPI: The patient is a 73 y/o F w/ PMHx: CKD stage II per prior GFR trending, HTN, Hypothyroidism, Cognitive chronic impairment/mental delay who presents to the [facility] ED on 06/02/24 with history of onset expressive aphasia just after listening to a book audio with her cousin as were discussing what toppings everyone other pizza at approximately 2230 with her cousin who is present noting that her speech was nonsensical and she was obviously getting upset because she believed she was saying the appropriate thing but it was not coming out appropriate. They note that this was ongoing for approximately 45 minutes and she had even called over her sister to also assess Tawnya given the already eventually prompting ED evaluation to be cautious. The family does note that some of her answers frequently are atypical and this is chronic for her with her underlying cognitive chronic impairment/mental delay. As an example in the ED patient orientation questions were answered as the wrong president, her birthday was given instead of the year and she could not give the month but they state that this is her normal baseline. Workup in the ED included T97.5, heart rate 105, BP 162/99, respiratory rate 17, 99% on room air with most recent repeat vitals T97.5, heart rate 90, BP 183/111, respiratory rate 18, 96% room air, CBC with WC 9.0, he 1 15.4, platelet 354 without marked shift, unremarkable coags, BMP with BUN/creat 31/1.54, GFR 35, glucose 109, troponin 8, CT of the brain with no acute intracranial findings with atrophy and chronic ischemic changes with evidence of a chronic lacunar insult in the left basal ganglia, CTA head and neck with no evidence of any large high grade stenosis or occlusion, chest x-ray with no acute cardiopulmonary findings, EKG with sinus rhythm with no acute evidence of ischemia. Hospital Course: 1. Expressive aphasia?73-year-old female presented to the hospital with expressive aphasia and concerns for possible stroke. MRI was negative indicative of a TIA. Neurology was consulted and recommended aspirin and statin on discharge. Echocardiogram was unremarkable and lipid profile was also fairly normal with an LDL of 107. I discussed with her the plan for discharge today she expressed understanding of the risks and benefits of going home and would like to go home today. She will need to follow-up with her PCP in 3 to 5 days. Will continue with Lipitor and aspirin on discharge. Of note her blood pressure medications were held for permissive hypertension, these can be restarted tomorrow morning. Of note her creatinine was slightly elevated to 1.54, baseline appears to be 1.1-1.2 and it did return to baseline on the day of discharge. 2. Essential hypertension, hypothyroidism are chronic medical conditions which complicate her care. Her home medications were continued where appropriate Physical Exam Narrative General: Alert, Oriented x3, Cooperative, No apparent distress HEENT: Atraumatic, PERRLA, EOMI, Normocephalic Oral: Moist Mucosa Neck: Supple, No JVD Lungs: Diminished, Normal air movement, No rhonchi, No wheeze, No rales Cardiovascular: Regular rate, Regular Rhythm, Normal S1, Normal S2, No murmurs Abdomen: Soft, Non Tender, Non-Distended, No Hepato-splenomegaly Extremities: No edema, Capillary Refill Less than 3 Seconds Skin: No rashes, No breakdown Musculoskeletal: No Tenderness to Palpation of Joints or Extremities Neurological: No focal neurological deficits, Motor Exam 5/5 strength throughout, Sensory exam intact to light touch and pain, NIH of 0 Psych/Mental Status: Normal Affect, Appropriate Weight / BMI Weight Weight: 169 lb 12.095 oz Body Mass Index (BMI) 25.0 ABG / Lab / Microbiology Data 06/02/24 06:44 06/02/24 06:44 Laboratory: Laboratory Results - last 24 hr 06/01/24 23:40: WBC 9.0, RBC 5.06, Hgb 15.4 H, Hct 45.3, MCV 89.5, MCH 30.4, MCHC 34.0, RDW Std Deviation 42.7, RDW Coeff of Jessica 13.1, Plt Count 354, MPV 10.3, Immature Gran % (Auto) 0.400, Neut % (Auto) 51.4, Lymph % (Auto) 32.3, M yulia % (Auto) 12.2 H, Eos % (Auto) 2.5, Baso % (Auto) 1.2 H, Absolute Neuts (auto) 4.6, Absolute Lymphs (auto) 2.91, Nucleated RBC % 0, PT 13.1, INR 1.0, APTT 26.5, Sodium 138, Potassium 4.2, Chloride 104, Carbon Dioxide 24.0, Anion Gap 10, BUN 31 H, Creatinine 1.54 H, Estim Creat Clear Calc 32.99, Est GFR (MDRD) Af Amer 42 L, Est GFR (MDRD) Non-Af 35 L, BUN/Creatinine Ratio 20.1 H, G lucose 109 H, Calcium 9.6, Magnesium 2.1, Troponin I High Sens 8, POC Glucose 100 06/02/24 06:44: WBC 8.4, RBC 4.50, Hgb 13.2, Hct 40.1, MCV 89.1, MCH 29.3, MCHC 32.9, RDW Std Deviation 42.6, RDW Coeff of Jessica 13.0, Plt Count 322, MPV 10.3, Immature Gran % (Auto) 0.500, Neut % (Auto) 54.1, Lymph % (Auto) 30.6, Tripp % (Auto) 11.7 H, Eos % (Auto) 1.9, Baso % (Auto) 1.2 H, Absolute Neuts (auto) 4.6, Absolute Lymphs (auto) 2.58, Nucleated RBC % 0, Sodium 138, Potassium 4.2, Chloride 106, Carbon Dioxide 24.0, Anion Gap 8, BUN 30 H, Creatinine 1.13 H, Estim Creat Clear Calc 44.96, Est GFR (MDRD) Af Amer 60, Est GFR (MDRD) Non-Af 50 L, BUN/Creatinine Ratio 26.5 H, Glucose 86, Hemoglobin A1c 5.4, Calcium 8.6, Total Bilirubin 0.50, AST 10 L, ALT 13, Alkaline Phosphatase 92, Total Protein 6.4, Albumin 3.1 L, Globulin 3.3, Albumin/Globulin Ratio 0.9, Triglycerides 117, Cholesterol 176, LDL Cholesterol 107, VLDL Cholesterol 23, HDL Cholesterol 46, TSH 2.260 Radiography Diagnostic Testing: Radiology Impression Brain CT 06/01/24 23:30 IMPRESSION: 1. No acute intracranial abnormality. If there is persistent clinical concern for acute ischemia, MRI is most sensitive. 2. Atrophy and chronic ischemic changes as above. One or more dose reduction techniques were used (e.g., Automated exposure control, adjustment of the mA and/or kV according to patient size, use of iterative reconstruction technique). Reading Location: [facility] Head/Neck CTA 06/01/24 23:31 IMPRESSION: No large vessel high-grade stenosis or occlusion. One or more dose reduction techniques were used (e.g., Automated exposure control, adjustment of the mA and/or kV according to patient size, use of iterative reconstruction technique). Reading Location: [facility] Chest X-Ray 06/01/24 23:55 IMPRESSION: No acute airspace abnormality. Reading Location: [facility] Brain MRI 06/02/24 01:56 IMPRESSION: 1. Chronic appearing paranasal sinusitis. 2. Moderate bilateral cerebral and mild pontine white matter changes, consistent with chronic ischemic changes of small-vessel disease. 3. No acute intracranial process is noted. Reading Location: [id number] Echocardiogram 06/02/24 01:56 Interpretation Summary The estimated ejection fraction is 65 %. No evidence for diastolic dysfunction. Trivial mitral valve insufficiency. Ordering Physician: Sabiha Amado Performed By: Tony Corbett RCS D/C Instructions Discharge Diet: Low fat / Low cholesterol Call your doctor if you observe: Fever of 101 or Higher, Shortness of breath, Dizziness, Fainting spells, Swelling in the ankles, Chest pain and Increased palpitations (irregular heartbeat) DC O2, CPAP, BIPAP Needs Home O2 Discharge instructions: No Meaningful Use Info Meaningful Use Meaningful Use Diagnoses (Choose all that apply): None applicable Ischemic Stroke Statin Dosing Therapy Reference: STATIN DOSE THERAPY REFERENCE: * Patients > 75 years receive moderate or high dose statin therapy. * Patients 75 years or YOUNGER should receive HIGH intensity statin dose unless contraindicated. You will be required to document reason for non-treatment if statin daily dose does not meet guidelines. HIGH DOSE STATIN THERAPY DAILY Atorvastatin > than or = to 40 mg Rosuvastatin > than or = to 20 mg Amlodipine + Atorvastatin > than or = to 2.5/40 mg Ezetimibe + Simvastatin 10/80 mg Simvastatin 80mg Discharge Plan Admission Admit Date/Time: 06/02/24 00:59 Attending Provider: Leandro Waters Primary Care Provider: Jaelyn Cisse Consulting Providers: Italo Chung; Hannah Arciniega; Marquita Loco; Elidia Pro; Neema Tipton; Rosalio Meek; Debra Proctor; Dinesh Bach; Geovanny Palmer; Jaswinder Mark; Riri Quinn; Alex Lowe; Gwen Hennessy; Dia Fraser; Casa Vann; Juan Hollis; Grace Humphrey; Sergey Rausch; Sakina Jacob; Taryn Santos; Sabiha Amado Instructions Patient Instructions: ED TIA: Transient Ischemic Attack Discharge Orders/Prescriptions Prescriptions: New aspirin 81 mg Tablet,Chewable 81 mg PO BREAKFAST 30 Days Qty: 30 0RF atorvastatin [Lipitor] 40 mg tablet 40 mg PO QHS 30 Days Qty: 30 0RF Continued metoprolol succinate 50 mg tablet extended release 24 hr 50 mg PO DAILY Qty: 30 11RF losartan 50 mg tablet 50 mg PO QDAY Qty: 30 11RF Rx Instructions: Take at suppertime levothyroxine 75 mcg tablet 112.5 mcg PO DAILY Qty: 45 1RF cyanocobalamin (vitamin B-12) 1,000 mcg tablet, sublingual 2,000 mcg PO QDAY Qty: 90 1RF Referrals / Follow Up: Jaelyn Cisse MD [Primary Care Provider] - Within 1 Week Disposition Disposition (needs filled in before D/C Order can be placed): Home, Self Care Charges/Coding Visit Charges Inpatient E&M: 38870 Disch Hosp >30min
== END 2024-06-02 16:54 | disposition home or self-care (01) ==
LOC: ED 06-02 00:48 → PCU 06-02 01:07
PROVIDERS: Admitting Provider Family Medicine; Emergency Provider Emergency Medicine; PCP Internal Medicine; Visit Provider Family Medicine
DX: R47.01 Aphasia (principal); Z79.890 Hormone replacement therapy; R41.89 Other symptoms and signs involving cognitive functions and awareness; E03.9 Hypothyroidism, unspecified; I12.9 Hypertensive chronic kidney disease with stage 1 through stage 4 chronic kidney disease, or unspecified chronic kidney disease; N18.2 Chronic kidney disease, stage 2 (mild); Z79.899 Other long term (current) drug therapy; Z79.82 Long term (current) use of aspirin; R94.31 Abnormal electrocardiogram [ECG] [EKG]; I07.1 Rheumatic tricuspid insufficiency
CPT/HCPCS: 36415; 70450; 70496; 70498; 70551; 71045; 80048; 80053; 80061; 82962; 83036; 83735; 84443; 84484; 85025; 85610; 85730; 93005; 93306; 96360; 96361; 96372; 97162; 99221; 99284; Q9957; Q9967; A4216; C8929; G0378

== ENCOUNTER → 2024-07-17 | Outpatient (CLI) | payer MEDICARE, SELFPAY ==
[2024-07-17 16:12] LABS: ALB/GLOB Ratio 1.3 RATIO (0.9-2.4); AST(SGOT) 17 U/L (<=31); Alanine Aminotransfer ALT/SGPT 8 U/L (<=34); Alkaline Phosphatase 141 U/L (35-104); Anion Gap 11 (5-15); BUN 23 mg/dL (4-19); BUN/Creat Ratio 26.7 RATIO (10-20); Calcium,Total 9.6 mg/dL (7.6-11.0); Carbon Dioxide 26.5 mmol/L (21.0-32.0); Chloride 101 mmol/L (98-108); Cholesterol 144 mg/dL (<=200); Creatinine, Serum 0.87 mg/dL (0.70-1.20); EST Glomerular Filtration Rate 69 (>60); Globulin 3.2 g/dL (2.2-4.2); Glucose 94 mg/dL (70-99); High Density Lipoprotein 58 mg/dL; Low Density Lipoprotein Calc. 61 mg/dL; Potassium 4.7 mmol/L (3.3-5.1); Protein, Total 7.2 g/dL (5.9-8.4); Sodium Level 138 mmol/L (133-145); Total Bilirubin 0.61 mg/dL (0.00-1.30); Triglycerides 125 mg/dL; Very Low Density Lipoprotein 25 mg/dL (5-40); cholesterol:hdl ratio screen 2.49
[2024-07-17 16:19] LABS: Vitamin B12 588 pg/mL (180-914)
== END | disposition home or self-care (01) ==
LOC: BIMLAB 11:39
PROVIDERS: PCP Internal Medicine; Referring Provider Internal Medicine; Visit Provider Internal Medicine
DX: G45.9 Transient cerebral ischemic attack, unspecified (principal); I10 Essential (primary) hypertension; E53.8 Deficiency of other specified B group vitamins; E55.9 Vitamin D deficiency, unspecified
CPT/HCPCS: 36415; 80053; 80061; 82306; 82607

== ENCOUNTER 2024-08-13 19:00 | Emergency (ER) | payer MEDICARE, SELFPAY ==
[2024-08-13 19:00] VITALS: BP 161/94; PULSE 80; RESP 18; TEMP 36.1; O2SAT 100; BMI 25.1
--- NOTE | 2024-08-13 19:35 | RAD_ITS ---
PROCEDURE: WRIST MIN 3 VIEWS 08/13/2024 REASON FOR EXAM: PAIN TECHNIQUE: 3 view(s) of the right wrist. COMPARISON: None FINDINGS: Diffuse osteopenia. No acute fracture or dislocation. Joint spaces are maintained. No significant soft tissue swelling. No radiopaque foreign body. RAD/Wrist min 3 Views IMPRESSION: No acute findings. Reading Location: [facility]
--- NOTE | 2024-08-13 20:10 | RAD_ITS ---
PROCEDURE: RIGHT FOREARM, TWO VIEWS 08/13/2024 REASON FOR EXAM: INJURY/PAIN TECHNIQUE: 2 view(s) of the RIGHT forearm COMPARISON: NO RELEVANT PRIOR FINDINGS: Bones: No fractures or other osseous abnormalities. Joints: No subluxations or dislocations. Soft tissues: Unremarkable. RAD/Forearm 2 Views IMPRESSION: NO ACUTE OSSEOUS FINDINGS. Reading Location: [facility]
--- NOTE | 2024-08-13 20:42 | EX.ED.UPPERE ---
HPI History of Present Illness HPI Narrative: Patient presents with pain to her right forearm that occurred today. Patient states she was walking on the sidewalk when she fell. Patient thinks she tripped and fell. Patient denies any head injury or loss of consciousness. Patient states her pain is over her right forearm. Patient describes it as aching. Patient states it is worse with movement. Patient states it is better with ice. Patient denies any head injury or loss of consciousness. Patient denies any other injuries. Chief Complaint: Upper Extremity Injury Occured/Mechanism Mechanism/Context: Yes fall Onset/Context/Timing Onset: Today Context: Sudden Onset Timing: Continuous Quality of Pain: Aching Location: Right forearm Worsened by: Movement Relieved by: Ice Associated Symptoms Associated Symptoms: Negative for Parasthesia, Weakness or Loss of Funtion [facility] Medical History CKD (chronic kidney disease), stage II Cognitive decline HTN (hypertension) Hypothyroidism Tachycardia Home Medications ?Medication ?Instructions ?Recorded ?Last Taken ?Type losartan 50 mg tablet 50 mg PO QDAY #30 tabs 01/25/24 Unknown Rx metoprolol succinate 50 mg 50 mg PO DAILY #30 tabs 01/25/24 Unknown Rx tablet,extended release 24 hr cyanocobalamin (vitamin B-12) 1,000 mcg PO QDAY 06/05/24 Unknown History 1,000 mcg sublingual tablet levothyroxine 75 mcg tablet 112.5 mcg (1.5 x 75 mcg) PO DAILY 06/05/24 Unknown Rx #135 tabs aspirin 81 mg chewable tablet 81 mg PO BREAKFAST 30 days #90 tabs 06/30/24 Unknown Rx atorvastatin 40 mg tablet (Lipitor) 40 mg PO QHS 30 days #90 tabs 06/30/24 Unknown Rx Allergy/AdvReac Type Severity Reaction Status Date / Time egg Allergy Swelling Verified 08/13/24 19:00 Penicillins Allergy Unknown Verified 08/13/24 19:00 Family History Other Adopted Surgical History History of tonsillectomy History of surgery on left wrist Social History adopted: Yes household members: family 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 Smoking Status: Never smoker alcohol intake: never substance use type: does not use caffeine: Yes (pop one per day) eating out: 1-3 times/week what type of physical activity do you participate in: walking seatbelt use: always do you feel safe at home: Yes ROS ROS ED Constitutional Constitutional ED: Denies chills or fever(s) Eyes Eyes: Denies blurry vision or change in vision ENT ENT ED: Denies rhinorrhea or sore throat Cardiovascular Cardiovascular: Denies chest pain or palpitations Respiratory/Chest Respiratory/Chest: Denies cough or dyspnea Gastrointestinal Gastrointestinal: Denies nausea or vomiting Genitourinary Genitourinary ED: Denies dysuria or hematuria Musculoskeletal Musculoskeletal: Denies back pain or neck pain Integumentary Denies abscess or rash Neurologic Neurologic: Denies headache(s) or weakness Allergic/Immunologic Allergic/Immunologic ED: Denies mouth swelling or urticaria EXAM Physical Exam Const Vital Signs: 08/13/24 19:00 Temperature 97 F L Temperature Source Temporal Pulse Rate 80 Respiratory Rate 18 Blood Pressure 161/94 H Blood Pressure Mean 116 Pulse Ox 100 Oxygen Delivery Method Room Air Positive well nourished and well developed General Appearance ED: well developed and NAD HEENT Reports moist mucous membranes normocephalic and atraumatic Neck full ROM and supple Extremity Extremity Narrative: There is tenderness over the ulnar aspect of the right forearm. There is no obvious deformity noted. Range of motion was limited in all motions of the right elbow and wrist secondary to pain. There is mild tenderness over the radial head. There is no tenderness over the anatomic snuffbox. Radial pulses are equal bilaterally. Sensation was intact to light touch in the radial, median, and ulnar areas. Strength is 5/5 in the radial, median, and ulnar areas. Neuro oriented x3, CN's II-XII intact bilaterally, moves all extremities, no focal motor deficits and no sensory deficits noted Sensorium / Orientation: alert Motor Exam: strength 5/5 throughout Psych mental status grossly normal MDM MDM MDM Narrative Medical decision making narrative: Differential includes fracture, sprain, and contusion. X-rays of the right wrist will be obtained to assess for wrist fracture. X-rays of the right forearm will be obtained to assess for forearm fracture. Radiography Diagnostic Testing: Clinical Impression(s) from Imaging Studies Wrist X-Ray 08/13/24 19:35 IMPRESSION: No acute findings. Reading Location: [facility] X-rays of the right wrist were obtained. There are 3 views. On my independent interpretation, there is no acute fracture or dislocation noted. There is no soft tissue swelling noted. Radiologist also interpreted the x-rays and agrees. X-rays of the right forearm were obtained. There are 2 views. On my independent interpretation, there is no acute fracture or dislocation noted. There is no elbow effusion. Radiologist also interpreted the x-rays and agrees. Treatment and Re-Evaluation Narrative: Patient and family were advised of the findings. Patient was instructed to ice and elevate the right wrist and forearm. Patient was instructed to take Tylenol as needed for pain. Patient was instructed to follow-up with her primary care physician in 5 to 7 days. Patient and family understood and were agreeable with the plan. All questions were answered. Discharge Plan Triage Chief Complaint: Upper Extremity Injury ED Provider: Adam Mesa Dx/Rx/DC Orders Clinical Impression: Contusion of right forearm, initial encounter, Fall Instructions: ED Soft Tissue Contusion Prescriptions: No Action metoprolol succinate 50 mg tablet extended release 24 hr 50 mg PO DAILY Qty: 30 11RF losartan 50 mg tablet 50 mg PO QDAY Qty: 30 11RF Rx Instructions: Take at suppertime cyanocobalamin (vitamin B-12) 1,000 mcg tablet, sublingual 1,000 mcg PO QDAY levothyroxine 75 mcg tablet 112.5 mcg PO DAILY Qty: 135 1RF aspirin 81 mg tablet,chewable 81 mg PO BREAKFAST 30 Days Qty: 90 1RF atorvastatin [Lipitor] 40 mg tablet 40 mg PO QHS 30 Days Qty: 90 1RF Primary Care Provider: Jaelyn Cisse Referrals: Jaelyn Cisse MD [Primary Care Provider] - 5-7 Days Print Language: Upper Sorbian Disposition Disposition: Home, Self Care
[2024-08-13 21:48] VITALS: BP 162/70; PULSE 80
--- NOTE | 2024-08-13 21:54 | ED.RN ---
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
== END 2024-08-13 21:54 | disposition home or self-care (01) ==
PROVIDERS: Emergency Provider Emergency Medicine; PCP Internal Medicine; Visit Provider Emergency Medicine
DX: S50.11XA Contusion of right forearm, initial encounter (principal); N18.2 Chronic kidney disease, stage 2 (mild); I12.9 Hypertensive chronic kidney disease with stage 1 through stage 4 chronic kidney disease, or unspecified chronic kidney disease; W01.0XXA Fall on same level from slipping, tripping and stumbling without subsequent striking against object, initial encounter; Y92.480 Sidewalk as the place of occurrence of the external cause; E03.9 Hypothyroidism, unspecified
CPT/HCPCS: 73090; 73110; 99282

== ENCOUNTER → 2024-08-20 | Outpatient (CLI) | payer MEDICARE, SELFPAY ==
--- NOTE | 2024-08-20 17:08 | RAD_ITS ---
PROCEDURE: SHOULDER MIN 2 VIEWS 08/20/2024 REASON FOR EXAM: PAIN TECHNIQUE: Four view right shoulder series. COMPARISON: Right shoulder study 12/25/2017. RAD/Shoulder min 2 Views IMPRESSION: Generalized osteopenia is again seen. A right glenohumeral joint anterior-inferior dislocation is seen, also with a m arkedly comminuted impacted FRACTURE of the head and surgical neck of the proximal right humerus. Reading Location: [place] [id number]
== END | disposition home or self-care (01) ==
LOC: MTRAD 17:08
PROVIDERS: PCP Internal Medicine; Referring Provider Physician Assistant; Visit Provider Physician Assistant
DX: R52 Pain, unspecified (principal)
CPT/HCPCS: 73030

== ENCOUNTER → 2024-08-25 | Outpatient (CLI) | payer MEDICARE, SELFPAY ==
--- NOTE | 2024-08-25 15:15 | CT_ITS ---
PROCEDURE: EXTREMITY UPPER WITHOUT CONTRA 08/25/2024 REASON FOR EXAM: FX EVALUATION R SHOULDER, INCL. BLUEPRINT CUTS. Right shoulder pain. Right humerus fracture. TECHNIQUE: Axial CT images of the shoulder obtained without intravenous contrast. Coronal and Sagittal reconstruction series were provided. One or more dose reduction techniques were used (e.g., Automated exposure control, adjustment of the mA and/or kV according to patient size, use of iterative reconstruction technique RADIATION DOSE SUMMARY: CTDlvol: 47 mGy DLP: 1067 mGycm COMPARISON: Shoulder x-rays 08/20/2024 FINDINGS: Acute extensively comminuted mildly angulated, mildly impacted fracture of the proximal humeral head and neck with greatest displacement of 2.5 cm. There is inferior subluxation of the humeral head in relation to the glenoid without dislocation. Right scapula appears intact. Right clavicle appears intact. Acromioclavicular joint is in articulating alignment. Mild acromioclavicular and glenohumeral osteoarthritis. Small to moderate glenohumeral joint effusion. Mild soft tissue stranding adjacent to the proximal humeral fracture. No fluid collection. Small lymph nodes right axilla with no enlarged lymphadenopathy. CT/Extremity Upper without Contra IMPRESSION: 1. Extensively comminuted proximal right humeral fracture head and neck fractu re. 2. Inferior subluxation of humeral head in relation to the glenoid without dis location 3. Mild acromioclavicular and glenohumeral osteoarthritis. Reading Location: [facility]
== END | disposition home or self-care (01) ==
LOC: CT 14:14
PROVIDERS: PCP Internal Medicine; Referring Provider Orthopaedic Surgery Sports Medicine; Visit Provider Orthopaedic Surgery Sports Medicine
DX: S42.201A Unspecified fracture of upper end of right humerus, initial encounter for closed fracture (principal); X58.XXXA Exposure to other specified factors, initial encounter
CPT/HCPCS: 73200

== ENCOUNTER 2024-11-27 12:30 | Outpatient (RCR) | payer MEDICARE, SELFPAY ==
--- NOTE | 2024-09-04 12:26 | HP.PTEVAL_ITS ---
Patient's Visit Information Visit Information Visit Information: ROYER RODRIGUEZ is a 74 year old F referred to Physical Therapy by Dr. Sylvester Hurst MD with a diagnosis of UNSPECIFIED FRACTURE OF UPPER ARM HUMERUS. Date of Evaluation: 09/04/24 Physical Therapist: Geovanny Hunter, PT, Cert MDT, OCS Visit Plan Frequency: 2x /Week Duration: 8-12WEEKS Plan: *Extensively comminuted proximal right humeral fracture head and neck fracture inferior subluxation of humeral head in relation to the glenoid without dislocation* -non surgical PT INTERVENTIONS INITIALLY PROM ,PROGRESS TO AAROM/AAROM FOR 6 WEEKS ,MANUAL THERAPY , THEN STRENGTHENING SHOULDER ,FAMILY EDUACTION AND CP/MHP Subjective Subjective: This 74 y/o female presents to physical therapy with right humerus fracture. Patient fell August 13 on right shoulder went to ER ,then [facility] showed A right glenohumeral joint anterior-inferior dislocation is seen, also with a markedly comminuted impacted fracture of the head and surgical neck of the proximal right humerus placed in sling. Patient had CTSCAN showed Extensively comminuted proximal right humeral fracture head and neck fracture inferior subluxation of humeral head in relation to the glenoid without dislocation. Seen DR Hurst removed imaging and recommended PT and ROM 3-6 weeks then strengthening ,no sling. Dr wanted conservative approach rather than surgery ,Patient has min min pain.Patient unable to move arm. Needs assist with ADLS and dressing and bathing. Family does all cooking. Pain affects sleeping. Patient denies paresthesia/tingling. Patient lives with cousins and daughter . Patient condition affects QOL/function/ADLS. SOCIAL: single VOCATION: retired Pain Right Shoulder: Pain Intensity (Out of 10): 5 Pain Intensity Range: 10 Objective Objective: POSTURE: trunk mod flexed forward ,hips/knees flexed NEURO: denies paresthesia/tingling PALPATION: tender global shoulder EDEMA: upper arm mild AROM: absent PROM: shoulder flexion 105 degrees ,abduction in scaption 100 degrees ,ER 25 degrees ,IR 40 degrees MMT: ( peak force ) shoulder 0 ,biceps 3//5 ,wrist 4-/5 Special Tests R Shoulder Drop Sign - IS Test: Positive Balance/Special Test Scores Quick DASH Score: 70.4525 Goals Goal 1:: Patient to improve AROM shoulder flexion /abduction ~ 90 degrees and ER 70 degrees for improving ADLS Goal Time Frame: 8-12 Weeks Goal 2:: Patient to be I with HEP for shoulder with family assist Goal Time Frame: 8-12 Weeks Goal 3:: Patient to improve peak force deltoid /RTC by 5-8 # strength to improve function Goal Time Frame: 8-12 Weeks Goal 4:: Patient to improve quick dash by 5 points to improve QOL Goal Time Frame: 8-12 Weeks Goal 5:: Patient to demonstrate 40 % improvement with less pain and improved function Rehabilitation Potential Physical Therapy Diagnosis: This patient fell sustained right shoulder /CTSCAN showed Extensively comminuted proximal right humeral fracture head and neck fracture inferior subluxation of humeral head in relation to the glenoid without dislocation with pain poor AROM ,decrease PROM ,weakness impairs ADL 's and self hygiene Rehabilitation Potential: Fair Anticipated Interventions Patient/Client Instruction: Educate patient on: Condition and Plan of Care For the Purpose of:: To decrease pain, To increase ROM, To improve muscle performance and motor function, To improve ability to perform ADL's, To increase tolerance to activity/condition/position, To decrease level of supervision to perform tasks, To improve ability of physical actions for home/community/work/leisure, To improve health of tissue, To decrease soft tissue restriction, To increase flexibility/ROM and To improve tolerance to ADL's Therapeutic Exercise to Include: Strength training, Postural training, Passive ROM, Active ROM and Scapular Strength/Stabilization Comment: RTC/DELTOID For the Purpose of:: To decrease pain, To increase ROM, To improve nutrient delivery to tissue, To increase oxygenation perfusion, To improve muscle performance and motor function, To increase tolerance to activity/condition/position, To improve performance and independence with ADL's, To improve ability of physical actions for home/community/work/leisure, To impro ve health of tissue, To decrease soft tissue restriction, To increase flexibility/ROM, To assume or resume ADL's and To improve tolerance to ADL's Manual Therapy Techniques to Include: Passive ROM For the Purpose of:: To decrease pain, To increase ROM, To improve ability to perform ADL's, To improve health of tissue, To decrease soft tissue restriction and To increase flexibility/ROM Text: Thank you for the opportunity to evaluate your patient. For Medicare and Medicare HMO plans, please review the plan of care and approve it. It will need to be FAXED BACK to us at [phone] for Medicare purposes. For Medicare only, by signing this I certify the plan of care. Please let me know if there are questions or concerns regarding this plan of care. Physician Signature: Date:
--- NOTE | 2024-10-02 13:09 | HP.PTREVAL ---
Re-Evaluation Intro: Dr. Sylvester Hurst MD, It has been my pleasure to treat ROYER RODRIGUEZ over the last 8 visits for UNSPECIFIED FRACTURE OF UPPER ARM HUMERUS. Please see the progress note below for an update on the physical therapy plan of care! Subjective Subjective: Seen DR last week x-rays showed some healing -okay to progress to light strengthening work on stretching Objective Objective/Function: Patient has shown progress with AROM and PROM and less pain along with some healing ,but const to be very weak and ROM is limited thus benefit from skilled PT with goals are appropriate POSTURE: trunk mod flexed forward ,hips/knees flexed NEURO: denies paresthesia/tingling PALPATION: tender global shoulder EDEMA: IMPROVED AROM:Shoulder flexion 75 degrees ,abduction 70 degrees PROM: shoulder flexion 115 degrees ,abduction in scaption 115 degrees ,ER 45 degrees ,IR 40 degrees MMT: ( peak force ) shoulder 0 deltoid ER 0 ,IR 4.3 ,biceps 3+/5 ,wrist 4-/5 Plan Plan Plan: *Extensively comminuted proximal right humeral fracture head and neck fracture inferior subluxation of humeral head in relation to the glenoid without dislocation* -non surgical cont with stretching and strengthening PT INTERVENTIONS INITIALLY PROM ,PROGRESS TO AAROM/AROM FOR 6 WEEKS ,MANUAL THERAPY , THEN STRENGTHENING SHOULDER ,FAMILY EDUACTION AND CP/MHP Balance/Gait/Functional tests Balance/Special Test Scores Quick DASH Score: 61.3625 Goals Goals Goal 1:: Patient to improve AROM shoulder flexion /abduction ~ 90 degrees and ER 70 degrees for improving ADLS Goal Time Frame: 8-12 Weeks Goal 2:: Patient to be I with HEP for shoulder with family assist Goal Time Frame: 8-12 Weeks Goal 3:: Patient to improve peak force deltoid /RTC by 5-8 # strength to improve function Goal Time Frame: 8-12 Weeks Goal 4:: Patient to improve quick dash by 5 points to improve QOL Goal Time Frame: 8-12 Weeks Goal 5:: Patient to demonstrate 40 % improvement with less pain and improved function Anticipated Interventions Anticipated Interventions Patient/Client Instruction: Educate patient on: Condition and Plan of Care For the Purpose of:: To decrease pain, To increase ROM, To improve muscle performance and motor function, To improve ability to perform ADL's, To increase tolerance to activity/condition/position, To decrease level of supervision to perform tasks, To improve ability of physical actions for home/community/work/leisure, To improve health of tissue, To decrease soft tissue restriction, To increase flexibility/ROM and To improve tolerance to ADL's Therapeutic Exercise to Include: Strength training, Postural training, Passive ROM, Active ROM and Scapular Strength/Stabilization Comment: RTC/DELTOID For the Purpose of:: To decrease pain, To increase ROM, To improve nutrient delivery to tissue, To increase oxygenation perfusion, To improve muscle performance and motor function, To increase tolerance to activity/condition/position, To improve performance and independence with ADL's, To improve ability of physical actions for home/community/work/leisure, To improve health of tissue, To decrease soft tissue restriction, To increase flexibility/ROM, To assume or resume ADL's and To improve tolerance to ADL's Manual Therapy Techniques to Include: Passive ROM For the Purpose of:: To decrease pain, To increase ROM, To improve ability to perform ADL's, To improve health of tissue, To decrease soft tissue restriction and To increase flexibility/ROM Re-Evaluation Ending Re-evaluation ending: Please do not hesitate to contact me at [phone] by phone or if you have questions or concerns regarding this new plan of care! Sincerely, Geovanny Hunter, PT, Cert MDT, OCS
--- NOTE | 2024-10-30 12:30 | HP.PTREVAL ---
Re-Evaluation Intro: Dr. Sylvester Hurst MD, It has been my pleasure to treat ROYER RODRIGUEZ over the last 16 visits for UNSPECIFIED FRACTURE OF UPPER ARM HUMERUS. Please see the progress note below for an update on the physical therapy plan of care! Subjective Subjective: Doing good PT is helping Able to dress difficulty with rEaching [place] Objective Objective/Function: Patient has shown progress with AROM and PROM and less pain along with some healing ,and slowly improving strength and ROM is limited thus benefit from skilled PT with goals are appropriate POSTURE: trunk mod flexed forward ,hips/knees flexed NEURO: denies paresthesia/tingling PALPATION: tender global shoulder EDEMA: IMPROVED AROM:Shoulder flexion 76 degrees ,abduction 75 degrees PROM: shoulder flexion 115 degrees ,abduction in scaption 117 degrees ,ER52 degrees ,IR 41 degrees MMT: ( peak force ) shoulder 6.3 deltoid ER 0 ,IR 4.3 ,biceps 3+/5 ,wrist 4-/5 Plan Plan Plan: *Extensively comminuted proximal right humeral fracture head and neck fracture inferior subluxation of humeral head in relation to the glenoid without dislocation* -non surgical cont with stretching and strengthening PT INTERVENTIONS INITIALLY PROM ,PROGRESS TO AAROM/AROM FOR 6 WEEKS ,MANUAL THERAPY , THEN STRENGTHENING SHOULDER ,FAMILY EDUACTION AND CP/MHP Balance/Gait/Functional tests Balance/Special Test Scores Quick DASH Score: 59.0900 Goals Goals Goal 1:: Patient to improve AROM shoulder flexion /abduction ~ 90 degrees and ER 70 degrees for improving ADLS Goal Time Frame: 8-12 Weeks Goal Progress: Progressing Goal 2:: Patient to be I with HEP for shoulder with family assist Goal Time Frame: 8-12 Weeks Goal 3:: Patient to improve peak force deltoid /RTC by 5-8 # strength to improve function Goal Time Frame: 8-12 Weeks Goal Progress: Progressing Goal 4:: Patient to improve quick dash by 5 points to improve QOL Goal Time Frame: 4-6 Weeks Goal Progress: Progressing Goal 5:: Patient to demonstrate 50 % improvement with less pain and improved function( new goal) Goal Time Frame: 4-6 Weeks Anticipated Interventions Anticipated Interventions Patient/Client Instruction: Educate patient on: Condition and Plan of Care For the Purpose of:: To decrease pain, To increase ROM, To improve muscle performance and motor function, To improve ability to perform ADL's, To increase tolerance to activity/condition/position, To decrease level of supervision to perform tasks, To improve ability of physical actions for home/community/work/leisure, To improve health of tissue, To decrease soft tissue restriction, To increase flexibility/ROM and To improve tolerance to ADL's Therapeutic Exercise to Include: Strength training, Postural training, Passive ROM, Active ROM and Scapular Strength/Stabilization Comment: RTC/DELTOID For the Purpose of:: To decrease pain, To increase ROM, To improve nutrient delivery to tissue, To increase oxygenation perfusion, To improve muscle performance and motor function, To increase tolerance to activity/condition/position, To improve performance and independence with ADL's, To improve ability of physical actions for home/community/work/leisure, To improve health of tissue, To decrease soft tissue restriction, To increase flexibility/ROM, To assume or resume ADL's and To improve tolerance to ADL's Manual Therapy Techniques to Include: Passive ROM For the Purpose of:: To decrease pain, To increase ROM, To improve ability to perform ADL's, To improve health of tissue, To decrease soft tissue restriction and To increase flexibility/ROM Re-Evaluation Ending Re-evaluation ending: Please do not hesitate to contact me at [phone] by phone or if you have questions or concerns regarding this new plan of care! Sincerely, Geovanny Hunter, PT, Cert MDT, OCS
--- NOTE | 2024-11-27 12:51 | HP.PTDCSUM ---
Discharge Summary D/C summary: It has been my pleasure to treat ROYER RODRIGUEZ referred by Dr. Sylvester Hurst MD, with the diagnosis of UNSPECIFIED FRACTURE OF UPPER ARM HUMERUS for a total of 23 visit(s). Discharge Date: Please see the following information for a summary of their discharge status. Subjective Subjective: Doing better overall Able to do self hyeines ,and basic ADL's Pain Right Shoulder: Pain Intensity (Out of 10): 2 Overall Improvement % Improvement: 50 Objective Objective/Function: POSTURE: trunk mod flexed forward ,hips/knees flexed NEURO: denies paresthesia/tingling PALPATION: tender global shoulder EDEMA: IMPROVED AROM:Shoulder flexion 90 degrees ,abduction 80 degrees PROM: shoulder flexion 115 degrees ,abduction in scaption 117 degrees ,ER52 degrees ,IR 41 degrees MMT: ( peak force ) shoulder 6.3 deltoid ER 10,5 ,IR 11.2 ,biceps4/5 ,wrist 4/5 Goals Goal 1:: Patient to improve AROM shoulder flexion /abduction ~ 90 degrees and ER 70 degrees for improving ADLS Goal Progress: Goal Met Goal 2:: Patient to be I with HEP for shoulder with family assist Goal Progress: Goal Met Goal 3:: Patient to improve peak force deltoid /RTC by 5-8 # strength to improve function Goal Progress: Goal Met Goal 4:: Patient to improve quick dash by 5 points to improve QOL Goal Progress: Goal Met Goal 5:: Patient to demonstrate 50 % improvement with less pain and improved function( new goal) Plan Plan: D.C TO HEP D/C Information d/c sentence: If there are questions or concerns regarding this patient's physical therapy, please feel free to call me at [phone]. Thank you for the referral of this patient. Sincerely, Geovanny Hunter, PT, Cert MDT, OCS Balance/Gait/Functional tests Balance/Special Test Scores Quick DASH Score: 34.0900 Improvement % Improvement: 50
== END 2024-11-27 19:00 | disposition home or self-care (01) ==
LOC: PT 12:30
PROVIDERS: PCP Internal Medicine; Referring Provider Orthopaedic Surgery Sports Medicine; Visit Provider Orthopaedic Surgery Sports Medicine
DX: S42.201D Unspecified fracture of upper end of right humerus, subsequent encounter for fracture with routine healing (principal)
CPT/HCPCS: 97110; 97140; 97162; 97530

== ENCOUNTER → 2025-01-30 | Outpatient (CLI) | payer MEDICARE, SELFPAY ==
--- NOTE | 2025-01-30 10:48 | VDLE_ITS ---
Reason For Study VL/Venous Duplex US, Unilateral
== END | disposition home or self-care (01) ==
LOC: CVS 10:48
PROVIDERS: PCP Internal Medicine; Referring Provider Internal Medicine; Visit Provider Internal Medicine
DX: M79.89 Other specified soft tissue disorders (principal); M79.604 Pain in right leg
CPT/HCPCS: 93971